=== PATIENT | female | born 1985 | race Caucasian/White ===

== ENCOUNTER → 2017-07-03 16:18 | Outpatient (CLI) | payer OTHER, SELFPAY ==
[2017-07-03 17:01] LABS: Hematocrit 36.2 % (37-47); Hemoglobin 11.9 g/dl (12.0-15.0); Mean Corp Hgb Conc 32.9 g/gl (32-36); Mean Corpuscular Hgb 30.1 pg (27.0-32.0); Mean Corpuscular Volume 91.4 fL (81-99); Mean Platelet Vol. 10.7 fl (6.2-12.0); Platelet Count 248 K/mm3 (150-450); RBC Distribution Width CV 13.8 % (11.6-14.6); RBC Distribution Width SD 45.6 fl (35.1-43.9); Red Blood Count 3.96 M/mm3 (4.2-5.4); White Blood Count 8.1 K/mm3 (4.4-11.0)
[2017-07-03 17:04] LABS: Glucose Challenge Gest 1H 50g 160 mg/dL (70-140)
[2017-07-03 17:40] LABS: Scan Indicated on CBC? Y/N NO
== END ==
PROVIDERS: Visit Provider Obstetrics & Gynecology
DX: Z34.83 Encounter for supervision of other normal pregnancy, third trimester (principal)
CPT/HCPCS: 36415; 82950; 85027

== ENCOUNTER → 2017-07-17 06:57 | Outpatient (CLI) | payer OTHER, SELFPAY ==
--- NOTE | 2017-07-17 06:57 | DT_ITS ---
This patient was seen during an EMR downtime July 15, 2017 - July 22, 2017. This patient may have a combination of paper and electronic documentation or all paper documentation. All documentation is viewable within the e-chart portion of [employer] for each patient visit.
[2017-07-21 10:44] LABS: Glucose GTT-Gestation. Fasting 63 mg/dL (<105)
[2017-07-21 10:45] LABS: Glucose GTT-Gestational 1 Hr 190 mg/dL (<190)
[2017-07-21 10:46] LABS: Glucose GTT-Gestational 2 Hr 162 mg/dL (<165)
[2017-07-21 10:47] LABS: Glucose GTT-Gestational 3 Hr 102 L (<145)
== END ==
PROVIDERS: Family Provider Family Medicine; PCP Family Medicine; Visit Provider Obstetrics & Gynecology
DX: O99.810 Abnormal glucose complicating pregnancy (principal); Z3A.00 Weeks of gestation of pregnancy not specified
CPT/HCPCS: 82951; 82952

== ENCOUNTER → 2017-08-29 11:00 | Outpatient (CLI) | payer OTHER, SELFPAY ==
[2017-08-29 13:29] LABS: Group B Strep DNA By PCR Negative (Negative); Internal Control PASS; Probe Check PASS; Specimen Processing Control PASS
== END ==
PROVIDERS: Visit Provider Obstetrics & Gynecology
DX: Z36.85 Encounter for antenatal screening for Streptococcus B (principal)
CPT/HCPCS: 87653

== ENCOUNTER 2017-09-17 09:50 | Inpatient (IN) | payer OTHER, SELFPAY ==
[2017-09-10 11:05] VITALS: BMI 42.5
[2017-09-17] VITALS (14 sets, daily range): BP systolic 129–162; BP diastolic 59–106; PULSE 71–96; RESP 12–18; TEMP 36.4–37.7; O2SAT 93–100; BMI 44.7
[2017-09-17] MEDS: Lactated Ringers 1,000 ML 999 ML IV (10:25)
[2017-09-17 10:45] LABS: Absolute Lymphocyte Count 1.52 X10^3/ul (0.83-4.51); Absolute Neutrophil Count 5.5 X10^3/uL (2.0-7.7); Basophil# 0.01 X10^3/uL; Basophil% 0.1 % (0-1); Eosinophil# 0.09 X10^3/uL; Eosinophils% 1.2 % (0-5); Hematocrit 40.7 % (37-47); Hemoglobin 13.5 g/dl (12.0-15.0); Lymphocyte # 1.52 X10^3/ul (4.0); Lymphocyte % 19.8 % (19-41); Mean Corp Hgb Conc 33.2 g/gl (32-36); Mean Corpuscular Hgb 30.5 pg (27.0-32.0); Mean Corpuscular Volume 92.1 fL (81-99); Mean Platelet Vol. 11.4 fl (6.2-12.0); Monocyte# 0.59 X10^3/uL; Monocyte% 7.7 % (0-10); Neutrophil # 5.45 X10^3/uL (2.7-7.7); Neutrophil % 70.9 % (47-70); Platelet Count 194 K/mm3 (150-450); RBC Distribution Width CV 13.8 % (11.6-14.6); RBC Distribution Width SD 46.2 fl (35.1-43.9); Red Blood Count 4.42 M/mm3 (4.2-5.4); White Blood Count 7.7 K/mm3 (4.4-11.0)
[2017-09-17 10:46] LABS: POSITIVE COUNT NO; POSITIVE DIFFERENTIAL NO; POSITIVE MORPHOLOGY NO
[2017-09-17 10:52] LABS: Partial Thromboplast Time 27.7 Seconds (24.1-36.2)
--- NOTE | 2017-09-17 10:55 | NURSING ---
1000-32 y/o admitted for repeat c/s.
[2017-09-17] MEDS: Lactated Ringers 1,000 ML 150 ML IV (11:20)
[2017-09-17] MEDS: Sodium Citrate/Citric Acid 30 ML UDC PO (11:46)
[2017-09-17] MEDS: Oxytocin 30 units/NS 500 ml 30 UNITS/500 ML IV.SOLN 167 UNITS IV (12:30)
--- NOTE | 2017-09-17 13:02 | OP.PCM_ITS ---
- Problem List (1) Previous section complicating Status: Chronic Delivery Classification: Scheduled Final RAMYA: 09/24/17 Final RAMYA Source: US <20 weeks Gestational age: 39 Weeks and 0 Days Indications for : Repeat Elective Description of Procedure: Delivery of live female weighing 8lb8oz, Apgars 9/9. Normal uterus, ovaries, and placenta. Minor adhesions of omentum to the anterior lower abdominal wall. Amniotic Membrane Rupture Type: Artificial Amniotic Fluid Description: Clear Placenta Disposition: [facility] Drain: Ulrich to straight drain Fluids Replaced: 1500cc Cord Entanglement: Around neck x 1, loose Nuchal Cord Compression: Without compression Cord Vessel Description: 3 Vessels Esitmated Blood Loss (ml): 600 Infant Gender: Female (1 minute): 9 (5 minute): 9 Pre-op Antibiotic Given: Ancef 2 grams IV x1 Pt instructed on risks of surgery: Bleeding, Infection, Need for Future C- Sections, Injury to surrounding structure(s) including bowel and bladder Complications: None - Admit VTE Documentation VTE Present on Admission: No VTE Mechan Device Prophylaxis: SCD's VTE Pharm Prophylaxis ordered?: No
--- NOTE | 2017-09-17 13:03 | PCM.OPRPT ---
Problem List (1) Previous section complicating Status: Chronic Report of Operation Date of Procedure: 09/17/17 Pre-Operative Diagnosis: Previous Section Post-Operative Diagnosis: Same Surgery/Procedure Performed:: Repeat Low Transverse Section Description of Surgical Findings:: Live female in vertex presentation. Active cry at delivery. Apgars 9/9. weight 8lb8oz. Some minor adhesions of omentum to the anterior abdominal wall. Normal appearing uterus, ovaries, and fallopian tubes. manager government: Kristy Knowles Type of Anesthesia:: Spinal Anesthesiologist: Candy Shen Special Medications: none Specimen's removed: same Drains: lauren Estimated Blood Loss (mL): 600 Fluids Replaced: 1500cc Description of Procedure: Moramia was taken to the OR with IV running. She was given two grams of Ancef intravenously for surgical prophylaxis. SCDs were in place and operational throughout the case. Spinal anesthesia was introduced without complication. She was then prepped and draped in the supine position with a leftward tilt. A lauren catheter was placed. Once anesthesia was deemed adequate a Pfannensteil skin incision was made through the previous scar. The underlying subcutaneous tissue was dissected down to the level of fascia using blunt and sharp dissection. The fascia was then dissected in the midline and this incision was extended bilaterally with the Michelle scissors. The rectus muscles were then dissected off the lower and upper portion of the fascial defect. The rectus muscles were in the midline, the peritoneum identified and entered sharply. The peritoneal defect was enlarged using sharp dissection and blunt retraction. The omental adhesions were removed from the anterior abdominal wall with Bovie cautery. A bladder blade was placed. The vesicouterine peritoneum was then incised and a bladder falp was created. The bladder blade was then replaced. The lower uterine incision was then incised with the scalpel. Once the cavity was entered it was enlarged using blunt lateral and superior traction. The amniotic fluid was noted to be clear. The baby's head was then delivered followed by the body. Delayed cord clamping was employed. The nose and mouth were suctioned with a bulb suction. The cord was then clamped and cut. The baby was handed off to the waiting nursery nurse for evaluation. The placenta was delivered manually. The uterus was exteriorized and the cavity cleared of all clots and membranes. The uterine incision was repaired in two layers with #1 vicryl. The posterior cul de sac was cleared of all clot and fluid. The uterus was returned to the abdomen. The gutters were cleared of all clot and fluid. The uterine incision was inspected and found to be hemostatic. The peritoneum was closed with a running stitch of 2-0 vicryl. The rectus muscles were reapproximated with interrupted sutures of 0-Vicryl. The fascia was closed with a running stitch of #1 Stratofix suture. The subcutaneous tissue was closed with a running stitch of 2-0 Vicryl. The skin was closed with a subcuticular stitch of 4-0 Monocryl. Sponge, lap, needle, and instrument counts were correct. She was taken to the recovery room in stable condition. Grafts/Implants Used: none - Complications none - Admit VTE Documentation VTE Present on Admission: No VTE Mechan Device Prophylaxis: SCD's VTE Pharm Prophylaxis ordered?: No
[2017-09-17] MEDS: Lactated Ringers 1,000 ML 100 ML IV ×2 (13:15→18:28)
[2017-09-17] MEDS: Nalbuphine 10 MG/ML Ampul 5 MG IV ×2 (14:57→18:35)
--- NOTE | 2017-09-17 15:00 | NURSING ---
Nubain 5 mg SIVP given for c/o itching.
[2017-09-17] MEDS: Ketorolac 30 MG/ML Syringe IV (18:30)
[2017-09-17] MEDS: 0.9% Saline Lock 10 ML Syringe IV ×2 (18:36)
[2017-09-17] MEDS: Ondansetron 4 MG/2 ML Vial IV (18:50)
[2017-09-17] MEDS: Cefazolin 1 GM/50 ML BAG IV (20:09)
[2017-09-18] VITALS (8 sets, daily range): BP systolic 127–148; BP diastolic 67–90; PULSE 68–88; RESP 16–20; TEMP 36.8–37.3; O2SAT 95–100
[2017-09-18] MEDS: Ketorolac 30 MG/ML Syringe IV ×4 (00:21→17:41)
[2017-09-18] MEDS: Lactated Ringers 1,000 ML 100 ML IV (00:22)
[2017-09-18] MEDS: Cefazolin 1 GM/50 ML BAG IV (04:13)
[2017-09-18 06:11] LABS: Hematocrit 34.8 % (37-47); Hemoglobin 11.2 g/dl (12.0-15.0); Mean Corp Hgb Conc 32.2 g/gl (32-36); Mean Corpuscular Hgb 30.2 pg (27.0-32.0); Mean Corpuscular Volume 93.8 fL (81-99); Mean Platelet Vol. 11.1 fl (6.2-12.0); Platelet Count 160 K/mm3 (150-450); RBC Distribution Width CV 14.1 % (11.6-14.6); RBC Distribution Width SD 48.1 fl (35.1-43.9); Red Blood Count 3.71 M/mm3 (4.2-5.4); White Blood Count 8.5 K/mm3 (4.4-11.0)
[2017-09-18 06:24] LABS: Scan Indicated on CBC? Y/N NO
--- NOTE | 2017-09-18 08:57 | PCM.PN.OB ---
Subjective: Appears comfortable. Bleeding light. Breast feeding. Objective: Afeb VSS Urine output adequate. Hgb appropriate for POD#1. - Physical Exam General: Alert, Oriented x3, Cooperative, No apparent distress Lungs: Clear to auscultation, Normal air movement Cardiovascular: Regular rate, Regular Rhythm Abdomen: Soft, Non Tender, Non-Distended, - - Fundus firm. Incision dressing dry Extremities: No edema Skin: No rashes Neurological: Neuro grossly intact Psych/Mental Status: Normal Affect Comment: Lochia light Vital Signs Temp Pulse Resp BP Pulse Ox 99.1 F 88 16 127/85 H 97 09/18/17 04:00 09/18/17 06:00 09/18/17 06:00 09/18/17 04:00 09/18/17 06:00 Oxygen Delivery Method Room Air Weight: 244 lb 7.882 oz Body Mass Index (BMI) 44.7 Intake and Output for Last 24 Hours 09/16/17 09/17/17 09/18/17 23:59 23:59 23:59 Intake Total 3500 / 3500 1850 / 1850 Output Total 550 / 550 1300 / 1300 Balance 2950 / 2950 550 / 550 Laboratory Tests Past 24 Hrs 09/17/17 09/17/17 09/17/17 10:20 10:20 10:20 WBC 7.7 RBC 4.42 Hgb 13.5 Hct 40.7 MCV 92.1 MCH 30.5 MCHC 33.2 RDW 13.8 RDW Differential 46.2 H Plt Count 194 MPV 11.4 Immature Gran % (Auto) 0.300 Neut % (Auto) 70.9 H Lymph % (Auto) 19.8 [place] % (Auto) 7.7 Eos % (Auto) 1.2 Baso % (Auto) 0.1 Absolute Neuts (auto) 5.5 Absolute Lymphs (auto) 1.52 Total Counted Not Reportable APTT 27.7 Blood Type B POSITIVE Antibody Screen NEGATIVE 09/18/17 05:50 WBC 8.5 RBC 3.71 L Hgb 11.2 L Hct 34.8 L MCV 93.8 MCH 30.2 MCHC 32.2 RDW 14.1 RDW Differential 48.1 H Plt Count 160 MPV 11.1 Immature Gran % (Auto) Neut % (Auto) Lymph % (Auto) [place] % (Auto) Eos % (Auto) Baso % (Auto) Absolute Neuts (auto) Absolute Lymphs (auto) Total Counted APTT Blood Type Antibody Screen Medical Necessity - Tobacco Use Smoking Status: Never smoker Assessment/Plan All Active Problems Arrest of dilation, delivered, current hospitalization (Acute) Doing well on POD#1. Continue routine PO care.
--- NOTE | 2017-09-18 09:05 | DCINST_ITS ---
Discharge Diet: No Restrictions Discharge Activity: Return to Normal Activity, May Not Drive, May not drive while taking narcotic pain medications., May Shower Return to work on:: 11/18/17 May shower in (days): 0 May resume sexual activity in: 4-6 weeks Call your doctor if your incision/area has: Sudden Increased Bleeding, Increased Pain/ Swelling, Increased Redness, Foul Smelling Discharge, Swelling at the incision site Call your doctor if you observe: Fever of 101 or Higher, Inability to urinate, Inability to have a bowel movement, Using more than one pad per hour, Shortness of breath, Chest pain, Calf discomfort, Uncontrolled pain Remove Dressing in (days):: 3 Additional Instructions: If you experience any of the following, contact your healthcare provider. * Bleeding that soaks a pad every hour for 2 hours * Fever 100.4 or higher * Unrelieved incision or abdominal pain * Swelling, redness, discharge or bleeding from your incision or episiotomy site * Your incision begins to separate * Problems urinating (including inability to urinate or burning while urinating) . * Visual changes * Severe headache * Flu-like symptoms * Pain or redness in one of both of your breasts * Pain, warmth, tenderness or swelling in your legs, especially the calf area * Frequent nausea and vomiting * Symptoms of depression or anxiety If you experience any of the following, call 911 or go to the nearest Emergency Room. * Chest pain * Problems breathing * Seizure activity * Partial or complete paralysis of a body part, slurred speech, weakness or drooping of the face, or a sudden inability to walk or hold your balance Allergies/Adverse Reactions: Allergies No Known Allergies Allergy (Verified 09/10/17 11:06) Medications to take at Discharge Pantoprazole Sodium [Protonix] 40 mg PO DAILY 10/18/15 Vits [Prenatabs FA ] 1 tablet PO DAILY 10/18/15 L.acidoph,Paracasei, B.lactis [Probiotic] 1 each PO 09/10/17 Ibuprofen 600 mg PO Q6H PRN PRN #30 tab 09/18/17 Oxycodone [Oxyir] 5 - 10 mg PO Q4H PRN PRN 7 Days #28 tab 09/18/17 The following prescriptions were given: Oxycodone [Oxyir] 5 - 10 mg PO Q4H PRN PRN 7 Days #28 tab PRN Reason: Mod-Severe Pain (4-11/20) Ibuprofen 600 mg PO Q6H PRN PRN #30 tab PRN Reason: pain or cramping Follow-Up: Call to make an appointment with your doctor for an incision check in 1-2 weeks. You will also need a 6 week post- follow up appointment. Test results from this visit will be discussed in further detail at your follow- up appointment, if applicable. Please Follow Up With: Miguel Chavarria MD When: one week Primary Care Physician: Christophe Dozier MD [Primary Care Provider] - Proposed Discharge Date: 09/19/17
[2017-09-18] MEDS: Prenatal Vits Tablet 1 TABLET PO (09:59)
--- NOTE | 2017-09-18 12:25 | NURSING ---
1100 Mom doing well with feedings and encouraged to call if she would like to have any assistance with feedings. Larissa WAYNE
[2017-09-18] MEDS: oxyCODONE 5 MG Tablet PO ×2 (13:51→17:49)
[2017-09-18] MEDS: 0.9% Saline Lock 10 ML Syringe IV (17:41)
[2017-09-19] MEDS: Ketorolac 30 MG/ML Syringe IV ×3 (00:53→11:43)
[2017-09-19] MEDS: Senna/Docusate Sodium 1 Tablet PO (00:53)
[2017-09-19] MEDS: 0.9% Saline Lock 10 ML Syringe IV ×2 (00:54→11:44)
[2017-09-19 01:54] VITALS: BP 151/83; PULSE 69; RESP 18; TEMP 36.8; O2SAT 96
[2017-09-19] MEDS: oxyCODONE 5 MG Tablet PO ×2 (01:55→07:45)
--- NOTE | 2017-09-19 07:40 | PCM.PN.OB ---
Subjective: No specific complaints. Bleeding light. Breast feeding. Pain well controlled. Objective: Afeb VSS - Physical Exam General: Alert, Oriented x3, Cooperative, No apparent distress Lungs: Clear to auscultation, Normal air movement Cardiovascular: Regular rate, Regular Rhythm Abdomen: Soft, Non Tender, Non-Distended, - - Incision dressing dry Extremities: No edema, No Calf Tenderness Skin: No rashes Neurological: Neuro grossly intact Psych/Mental Status: Normal Affect Comment: Lochia light Vital Signs Temp Pulse Resp BP Pulse Ox 98.3 F 69 18 151/83 H 96 09/19/17 01:54 09/19/17 01:54 09/19/17 01:54 09/19/17 01:54 09/19/17 01:54 Oxygen Delivery Method Room Air Weight: 244 lb 7.882 oz Body Mass Index (BMI) 44.7 Intake and Output for Last 24 Hours 09/17/17 09/18/17 09/19/17 23:59 23:59 23:59 Intake Total 3500 / 3500 2632 / 2632 Output Total 550 / 550 3600 / 3600 Balance 2950 / 2950 -968 / -968 Medical Necessity - Tobacco Use Smoking Status: Never smoker Assessment/Plan All Active Problems Arrest of dilation, delivered, current hospitalization (Acute) Doing well on POday#2. Cleared for discharge home today. Home going instructions and warnings given.
--- NOTE | 2017-09-19 07:44 | DS.PCM_ITS ---
Discharge Date and Diagnosis Date of Admission: 09/17/17 Date of Discharge: 09/19/17 - Primary Discharge Diagnosis S/P repeat C/S - Secondary Discharge Diagnosis Chronic Problems Previous section complicating (Chronic) Gestational hypertension w/o significant proteinuria in 3rd trimester (Chronic) Hospital Course and Treatment Operations: - - Repeat LTCS Summary of Care Provided: The patient is a 32 year old F [admitted for scheduled repeat LTCS. This was performed without complication with delivery of a live without complication. Post operative course unremarkable. Discharged home on PO day#2. ] Discharge Diet: No Restrictions Discharge Activity: Return to Normal Activity, May Not Drive, May not drive while taking narcotic pain medications., May Shower Return to work on:: 11/18/17 May shower in (days): 0 May resume sexual activity in: 4-6 weeks Call your doctor if your incision/area has: Sudden Increased Bleeding, Increased Pain/ Swelling, Increased Redness, Foul Smelling Discharge, Swelling at the incision site Call your doctor if you observe: Fever of 101 or Higher, Inability to urinate, Inability to have a bowel movement, Using more than one pad per hour, Shortness of breath, Chest pain, Calf discomfort, Uncontrolled pain Remove Dressing in (days):: 3 Home Medications: Medications to take at Discharge Pantoprazole Sodium [Protonix] 40 mg PO DAILY 10/18/15 Vits [Prenatabs FA ] 1 tablet PO DAILY 10/18/15 L.acidoph,Paracasei, B.lactis [Probiotic] 1 each PO 09/10/17 Ibuprofen 600 mg PO Q6H PRN PRN #30 tab 09/18/17 Oxycodone [Oxyir] 5 - 10 mg PO Q4H PRN PRN 7 Days #28 tab 09/18/17 Following Prescrptions Were Given to Patient: Oxycodone [Oxyir] 5 - 10 mg PO Q4H PRN PRN 7 Days #28 tab PRN Reason: Mod-Severe Pain (4-10/10) Ibuprofen 600 mg PO Q6H PRN PRN #30 tab PRN Reason: pain or cramping Primary Care Physician: Christophe Dozier MD [Primary Care Provider] - Please Follow Up With: Miguel Chavarria MD When: one week Disposition: Home Minutes spent on discharge:: 15 Patient Condition:: Good Medical Necessity - Tobacco Use Smoking Status: Never smoker Meaningful Use Info Meaningful Use Diagnoses (Choose all that apply): None applicable
[2017-09-19 09:00] VITALS: BP 143/78; PULSE 76; RESP 16; TEMP 36.9; O2SAT 96
[2017-09-19] MEDS: Prenatal Vits Tablet 1 TABLET PO (11:44)
== END 2017-09-19 12:30 | disposition home or self-care (01) | DRG 765 ==
PROVIDERS: Admitting Provider Obstetrics & Gynecology; Family Provider Family Medicine; PCP Family Medicine; Visit Provider Obstetrics & Gynecology
PROC: 10D00Z1 Extraction of Products of Conception, Low, Open Approach (ICD-10-PCS; CPT 59514; principal; 2017-09-17 11:45)
DX: O34.211 Maternal care for low transverse scar from previous cesarean delivery (principal); O13.4 Gestational [pregnancy-induced] hypertension without significant proteinuria, complicating childbirth; O62.0 Primary inadequate contractions; O69.81X0 Labor and delivery complicated by cord around neck, without compression, not applicable or unspecified; O99.214 Obesity complicating childbirth; E66.01 Morbid (severe) obesity due to excess calories; Z68.41 Body mass index [BMI] 40.0-44.9, adult; Z3A.39 39 weeks gestation of pregnancy; Z37.0 Single live birth
CPT/HCPCS: 85025; 85027; 85730; 86850; 86900; 99218; J7120; A4216; G0378; J2405

== ENCOUNTER → 2017-10-23 16:53 | Outpatient (CLI) | payer OTHER, SELFPAY ==
--- NOTE | 2017-10-23 16:55 | RAD_ITS ---
STUDY: X-RAY - THORACIC SPINE REASON FOR EXAM: Female, 32 years old. Mid upper back pain radiating to the chest and abdomen since 6 weeks ago. TECHNIQUE: 3 view(s) of the thoracic spine were obtained. COMPARISON: None. FINDINGS: Normal kyphosis of the thoracic spine. There is no substantial scoliosis. Normal thoracic vertebrae and endplates. Normal disc space heights. The soft tissue structures are unremarkable. RAD/Thoracic Spine 3 Views IMPRESSION: Normal x-ray examination of the thoracic spine. Electronically Signed: Jaxson Ewing, at 18:04 EDT Tel , Service support ,
== END ==
PROVIDERS: Family Provider Family Medicine; PCP Family Medicine; Visit Provider Obstetrics & Gynecology
DX: M54.6 Pain in thoracic spine (principal)
CPT/HCPCS: 72072

== ENCOUNTER 2017-11-26 11:00 | Outpatient (RCR) | payer OTHER, SELFPAY ==
--- NOTE | 2017-10-31 17:03 | HP.PTEVAL_ITS ---
Patient's Visit Information RICHI AMADOR is a 32 year old F referred to Physical Therapy by Miguel Chavarria with a diagnosis of Back pain. Date of Evaluation: 10/31/17 Physical Therapist: David Rayo, PT, - Visit Plan Frequency: 2x /Week Duration: 4-6 Weeks Plan: T/S stab ex's , postural edu, scap stab ex's, UBE, and HEP. Will seek second opinion from Anaya Diamond PT, MDT next session. - Subjective Subjective: Pt reports she has had mid- upper back pain for the past 6 weeks. Pt notes she had a c section at that time, and notes that while she has been healing from this event, her back has begun to hurt. Pt has had pain like this before when she had a prior c section, but the pain was not this bad. Pt notes the pain usually hits worst in the middle of the night. Pt reports she is not sure what is causing her pain. Pt reports her pain will wrap around the front of her chest and ribcage when its at its worst. Sleep diff secondary to pain. Pt notes she had xrays, no abnormality. 3/10 pain at rest, 10/10 at worst ( while sleeping) - Pain Thoracic spine Pain Intensity (Out of 10): 3 Pain Intensity Range: 10 - Objective Neuro: B LE and UE sensation is WNL to light touch. B bicepital and patellar tendon reflex= 2/3 bilaterally. Palpation: Pt reports pain from the T2 region to the T8 region. No obvious deformity. UE MMT: B UE 5/5 throughout. Posture: Pt sits with decreased L/S lordosis, increased T/S kyphosis, and fwd head posture. T/S ROM: All motions are WNL. L SB increases pt's pain. Fwd bending and ext both have no effect. Repeated movements in sitting: flex 10x3 NE, ext in standing against h/l table increased pain - Goals Goal 1:: Decrease T/S pain x 50% to aid with sleep Goal Time Frame: 4-6 Weeks Goal 2:: Increase T/S mobility to WNL to aid with ADL's Goal Time Frame: 4-6 Weeks Goal 3:: I with HEP Goal Time Frame: 4-6 Weeks - Rehabilitation Potential Physical Therapy Diagnosis: Pt has back pain, limited T/S mobility, and diff with sleep secondary to T/S instability Rehabilitation Potential: Good - Anticipated Interventions Patient/Client Instruction: Educate patient on: Condition, Plan of Care For the Purpose of:: To improve self management Therapeutic Exercise to Include: Strength training, Endurance training, Body mechanics, Postural training, Scapular Strength/Stabilization For the Purpose of:: To decrease pain, To increase ROM, To improve muscle performance and motor function Thank you for the opportunity to evaluate your patient. For Medicare and Medicare HMO plans, please review the plan of care and approve it. It will need to be FAXED BACK to us at [phone] for Medicare purposes. Please let me know if there are questions or concerns regarding this plan of care. Physician Signature: Date:
--- NOTE | 2018-04-10 16:50 | HP.PT.NRP ---
HP - Discharge Summary (1) - Patient Information RICHI AMADOR was seen in my office for initial evaluation on 10/31/17. The following Plan of Care was established for this patient: Initial Frequency: 2x /Week Initial Duration: 4-6 Weeks - Anticipated Interventions Patient/Client Instruction: Educate patient on: Condition, Plan of Care For the Purpose of:: To improve self management Therapeutic Exercise to Include: Strength training, Endurance training, Body mechanics, Postural training, Scapular Strength/Stabilization For the Purpose of:: To decrease pain, To increase ROM, To improve muscle performance and motor function This patient was last seen in our office 11/26/17. Pertinent comments regarding their Physical therapy will appear below: This patient has not returned to Physical Therapy and is appropriate to return to MD for further follow-up as needed. At this point I will be discontinuing this patient from physical therapy. I would be happy to see this patient again in the future if found appropriate by the physician. Thank you! Anaya Diamond, PT, Cert MDT
== END 2017-11-26 19:00 | disposition home or self-care (01) ==
LOC: PT 11:00
PROVIDERS: Family Provider Family Medicine; PCP Family Medicine; Visit Provider Obstetrics & Gynecology
DX: M54.40 Lumbago with sciatica, unspecified side (principal)
CPT/HCPCS: 97014; 97035; 97110; 97161; 97164; 97530; G0283

== ENCOUNTER → 2018-02-07 15:09 | Outpatient (CLI) | payer OTHER, SELFPAY ==
[2018-02-14 16:28] LABS: HPV HC, High Risk Negative (Negative)
== END ==
PROVIDERS: Visit Provider Obstetrics & Gynecology
DX: Z12.4 Encounter for screening for malignant neoplasm of cervix (principal)
CPT/HCPCS: 87624; 88175; G0145

== ENCOUNTER → 2018-06-01 14:49 | Outpatient (CLI) | payer OTHER, SELFPAY ==
[2018-06-01 12:50] VITALS: BMI 37.8
== END ==
PROVIDERS: Family Provider Family Medicine; PCP Family Medicine; Referring Provider Physician Assistant Medical; Visit Provider Physician Assistant Medical
DX: J02.9 Acute pharyngitis, unspecified (principal)
CPT/HCPCS: 87081

== ENCOUNTER → 2018-07-24 09:43 | Outpatient (CLI) | payer OTHER, SELFPAY ==
[2018-07-07 13:03] VITALS: BMI 37.8
[2018-07-30 03:06] LABS: Alternaria tenuis <0.10 kU/L (Class 0); Ash, White <0.10 kU/L (Class 0); Aspergillus fumigatus <0.10 kU/L (Class 0); Bermuda Grass <0.10 kU/L (Class 0); Birch <0.10 kU/L (Class 0); Black Walnut 0.11 kU/L (Class 0/I); Cat Hair / Dander,Stand <0.10 kU/L (Class 0); Cedar, Mountain <0.10 kU/L (Class 0); Cladosporium herbarum <0.10 kU/L (Class 0); Cockroach, American <0.10 kU/L (Class 0); Cottonwood <0.10 kU/L (Class 0); D farinae Mite 6.22 kU/L (Class IV); D pteronyssinus 7.54 kU/L (Class IV); Dog Epithelia <0.10 kU/L (Class 0); Elm, American White <0.10 kU/L (Class 0); Immunoglobulin E 44 IU/mL (6-495); Maple/Box Elder <0.10 kU/L (Class 0); Mulberry, White <0.10 kU/L (Class 0); Oak, White <0.10 kU/L (Class 0); Pecan <0.10 kU/L (Class 0); Penicillium Notatum <0.10 kU/L (Class 0); Pigweed, Rough <0.10 kU/L (Class 0); Ragweed, Short/Common <0.10 kU/L (Class 0); Russian Thistle <0.10 kU/L (Class 0); Sheep Sorrel <0.10 kU/L (Class 0); Sycamore, American <0.10 kU/L (Class 0); Timothy Grass <0.10 kU/L (Class 0)
[2018-07-30 11:26] LABS: Mouse Urine <0.10 kU/L (Class 0)
[2018-07-30 16:07] LABS: Banana <0.10 kU/L (Class 0); Beef <0.10 kU/L (Class 0); Chicken <0.10 kU/L (Class 0); Garlic <0.10 kU/L (Class 0); Gluten <0.10 kU/L (Class 0); Rice <0.10 kU/L (Class 0); SESAME SEED <0.10 kU/L (Class 0); Strawberry <0.10 kU/L (Class 0); Wheat <0.10 kU/L (Class 0)
[2018-07-31 08:55] LABS: Milk (Cow) <0.10 kU/L (Class 0); Turkey <0.10 kU/L (Class 0)
== END ==
PROVIDERS: Family Provider Family Medicine; PCP Family Medicine; Referring Provider Otolaryngology; Visit Provider Otolaryngology
DX: T78.40XA Allergy, unspecified, initial encounter (principal)
CPT/HCPCS: 36415; 82785; 86003

== ENCOUNTER → 2019-07-31 | Outpatient (CLI) | payer OTHER, SELFPAY ==
[2018-09-12 17:05] VITALS: BMI 37.8
--- NOTE | 2019-07-31 12:45 | EMB_PTH ---
PATIENT: RICHI AMADOR LOC: [facility] U#:[id number] AGE/SX: 34/F ROOM: RE07/31/[address]: Dr. Gautam Hills MD : 1985 BED: DIS: 07/31/2019 SPEC #: [id number] RECD: 07/31/19 15:00 STATUS: SATYA ANNEMARIE #: [id number] REMI: 07/31/19 12:[address]: Gautam Hills DEPT: SURGICAL PATHOLOGY RECD BY: Matilde Guillen ENTERED: 08/03/19 09:12 SP TYPE: ENDOM BX/C DIMPLE DR: Dr. Christophe Dozier MD Tissues: Endometrium, NOS Procedures: Surgery Specimen Level IV HEADER OPERATION: Endometrial biopsy PRE-OP DIAGNOSIS: N92.0 TISSUE SUBMITTED: Endometrial biopsy MICROSCOPIC DIAGNOSIS Endometrial biopsy: Proliferative endometrium. SJ:daina 08/04/19 MICROSCOPIC DESCRIPTION Slides are reviewed. GROSS DESCRIPTION Received is one container labeled with the patient's name and not further designated. The specimen consists of multiple fragments of pink hemorrhagic soft tissue that in aggregate measure 3 x 2 x 0.2 cm. The specimen is totally submitted in one cassette. / SJ:daina 08/03/19 TC:4 CPT: 82195
== END | disposition home or self-care (01) ==
LOC: LABSPEC 15:53
PROVIDERS: PCP Family Medicine; Referring Provider Obstetrics & Gynecology; Visit Provider Obstetrics & Gynecology
DX: N92.0 Excessive and frequent menstruation with regular cycle (principal)
CPT/HCPCS: 88305

== ENCOUNTER 2019-08-28 05:57 | Day surgery (SDC) | payer OTHER, SELFPAY ==
[2018-09-12 17:05] VITALS: BMI 37.8
[2019-08-21 15:04] LABS: Hemoglobin 13.4 g/dL (12.0-15.0); Mean Corp Hgb Conc 32.7 g/dL (32-36); Mean Corpuscular Hgb 29.8 pg (27.0-32.0); Mean Corpuscular Volume 91.3 fL (81-99); Mean Platelet Vol. 10.6 fl (6.2-12.0); Platelet Count 261 K/mm3 (150-450); RBC Distribution Width CV 12.8 % (11.6-14.6); RBC Distribution Width SD 41.9 fl (35.1-43.9); Red Blood Count 4.49 M/mm3 (4.2-5.4); White Blood Count 7.5 K/mm3 (4.4-11.0)
[2019-08-21 15:16] LABS: International Normalized Ratio 0.9; Prothrombin Time (Protime)PT. 12.1 SECONDS (11.7-14.9)
[2019-08-21 15:55] LABS: Thyroid Stim Hormone (TSH) 2.81 uIU/mL (0.358-3.74)
[2019-08-21 15:59] LABS: Internal QC Validated? YES +Cl - CLEAR BKGD; Pregnancy, Serum, hCG Quali. NEGATIVE Negative
--- NOTE | 2019-08-27 13:24 | PCM.HP.BLA ---
History and Physical Date of Admission: 08/28/19 Surgical History and Physical Moraima Greenfield, a 34 year old female 2 0 0 0 2, presents for HTA, Hysteroscopy and D and C on August 28, 2019 at 7:30. -- Menorrhagia -- Heavy menses which began months ago. Moraima claims it started gradually It occurs with menses. It is located in the vagina. Moraima characterizes the quality heavy. Severity is severe and worsening; Associated signs and symptoms are had vasectomy. Additional comments are: TSH normal 2 years ago; u/s without polyps or fibroids. EMBx ok. MEDICATIONS HISTORY: ALLERGIES: NKDA Infections - Bronchitis, Chicken pox, mono and yeast inf Illnesses - anxiety, depression and migraines Accidents - no injuries of consequence Hospitalizations - Childbirth and see surgery Review of Systems: GENERAL - Denies fever, or chills SKIN - Denies skin changes EYES - wears eye glasses EARS - Denies difficulty hearing NOSE - Denies nasal congestion or bleeding MOUTH - Denies sore throat or difficulty swallowing NECK - Denies pain or swelling RESPIRATORY - Denies shortness of breath or wheezing CARDIOVASCULAR - Denies palpitations or chest pain GASTROINTESTINAL - Denies nausea, vomiting, diarrhea, constipation GENITOURINARY - Denies dysuria, frequency of urination, incontinence of urine MUSCULOSKELETAL - Denies joint or muscle pain NEUROLOGICAL - Denies localized numbness or weakness PSYCHIATRIC - Denies depression or anxiety ENDOCRINE - Denies heat or cold intolerance, weight loss or gain HEMATO-IMMUNOLOGIC - Denies excesive bleeding with cuts SOCIAL HISTORY: Alcohol Use - drinks occasionally Smoking - Never Diet - moderate, balanced diet and caffeine < 2 drinks per day Lifestyle - moderate stress lifestyle Exercise - active work Seat Belt Use - always Employer - [employer] 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 , 5th, 6th Illicit Drug Use - denies use of street drugs Sexual Activity - Residence - lives w/ Hours Worked - 50 hours per week Spouse-Sig Other Name - Meng Greenfield Spouse-Sig Other Occupation - Teacher [employer] / [employer] @ [employer] Spouse-Sig Other Phone No - [phone] Children Name(s) - Kar (10/27) julio, Lauri (09/17/17) julio Control - Vasectomy FAMILY HISTORY: Paternal Grandfather: DM II and Hypertension. MENSTRUAL HISTORY: LMP Known?- DefiniteAmount/Duration - 7 days, Regularity - Regular, Frequency - monthly days, LMP - 08/16/19, Age Onset Menarche - 13 PAST PREGNANCIES: Total Pregnancies - 2; Full Term Pregnancies - 2; Premature - 0; Abortions, Induced - 0; Abortions, Spontaneous - 0; Ectopics - 0; Multiple Births - 0; Living Children - 2 SURGICAL HISTORY: 1. 09/17/2017 ; Dr Miguel Chavarria - 2. 10/19/2015 ; Dr Miguel Chavarria - PHYSICAL EXAM BP- 124/88 Sitting, Right arm, large cuff Temp- 98.3 Taken Orally Weight- 240.72903 lbs Height- 63.25 inch BMI:42.27 CONSTITUTIONAL - NAD, well nourished, and well developed SKIN - No rash, lesions, or ulcers HEENT - Normocephalic, PERRLA, EOMI NECK - No nodes, no nuchal rigidity and thyroid normal size and texture LYMPH NODES - Palpation of lymph nodes in neck and groins within normal limits LUNGS - CTA x2 without wheezes, crackles or rales CARDIAC - Regular rate and rhythm without rubs, murmurs, or gallops BREAST - No dominant masses, no tenderness, no axillary adenopathy, no nipple discharge, no skin changes ABDOMEN - Without hepatosplenomegaly, distention, masses, rebound, or guarding; normal bowel sounds; no hernias EXTREMITIES - No edema or calf tenderness NEUROLOGICAL - Cranial nerves II-XII grossly intact PSYCHIATRIC - A and O to time, place, person, mood and affect External Genitial Vagina - non-tender without lesions Urethra/Urethral Meatus - non-tender Bladder - non-tender Vagina - vaginal justice are pink and moist without loss of rugae and no evidence of atropy Cervix - without cervical motion tenderness and has normal size and features without evident lesions Uterus - 5-6 cm in size, mobile and nontender Adnexa - clear without massess or tenderness ASSESSMENT/PLAN: 1. Premenopausal Menorrhagia Discussed optons at length and pt desires proceeding with HTA, D and C and H/S. Discussed RBAs and all questons answered.
[2019-08-28] VITALS (7 sets, daily range): BP systolic 126–166; BP diastolic 72–122; PULSE 54–81; RESP 16–18; TEMP 36.3–36.8; O2SAT 94–100; BMI 41.0
[2019-08-28 06:27] LABS: Internal QC Validated? YES +Cl - CLEAR BKGD; Pregnancy, Urine Negative Negative
[2019-08-28] MEDS: Lactated Ringers 1,000 ML 100 ML IV (06:44)
--- NOTE | 2019-08-28 07:30 | EMB_PTH ---
PATIENT: RICHI AMADOR [place] [facility] [place][id number] AGE/SX: 34/F ROOM: RE08/28/[address]: Dr. Gautam Hilsl MD : [id number] BED: DIS: 08/28/2019 SPEC #: [id number] RECD: 08/28/19 09:52 STATUS: SATYA ANNEMARIE #: [id number] REMI: 08/28/19 07:[address]: Gautam Hills DEPT: SURGICAL PATHOLOGY RECD BY: Jose G Harp ENTERED: 08/28/19 10:32 SP TYPE: ENDOM BX/C OTHR DR: Dr. Christophe Dozier MD Tissues: Endometrium, NOS Procedures: Surgery Specimen Level IV HEADER OPERATION: Hysteroscopy, D & C hydroablation PRE-OP DIAGNOSIS: Premenopausal menorrhagia TISSUE SUBMITTED: Endometrial curettings MICROSCOPIC DIAGNOSIS Endometrium, curettings: Proliferative endometrium. AM:daina 08/31/19 MICROSCOPIC DESCRIPTION Slides are reviewed. GROSS DESCRIPTION Received in fixative is one container labeled with the patient's name and designated endometria curettings. The specimen consists of multiple fragments of hemorrhagic soft tissue that in aggregate measure 5 x 3 x 0.3 cm. The entire specimen is submitted in two cassettes. / SJ:daina 08/28/19 TC:5 CPT: 92102
--- NOTE | 2019-08-28 07:32 | PCM.OPRPT ---
Report of Operation Date of Procedure: 08/28/19 Pre-Operative Diagnosis: Menorrhagia Post-Operative Diagnosis: Menorrhagia Surgery/Procedure Performed:: Diagnostic Hysteroscopy, Dilation and Curettage, Hydrothermal Ablation Description of Surgical Findings:: 10 cm endometrial cavity without polyps or fibroids. Cervix which protruded to within 1 to 2 cm of introitus with tenaculum pulled down which would make laparoscopic-assisted vaginal hysterectomy possible if hysterectomy were necessary. Type of Anesthesia:: General - LMA Anesthesiologist: Pablo Vigil Specimen's removed: Endometrial curettings Estimated Blood Loss (mL): Minimal Fluids Replaced: Crystalloid Description of Procedure: Surgeon: Gautam Hills MD, FACOG Indication: This is a 34 year old patient who has been having problems with extremely heavy menses. Conservative measures have not been helpful. Endometrial sampling was benign and pelvic ultrasound showed that ablation may be helpful. Pt has been counseled regarding the risks, benefits and alternatives of this procedure and all questions answered. She understands that only about half of patients will have amenorrhea after this procedure. Procedure: Patient taken to the operating room where after induction of general anesthesia the patient was prepped and draped in the usual sterile fashion. Bladder was drained of urine with a catheter. Anterior cervix grasped and cervix was dilated to about 17 English size. Hysteroscopic hydrothermal ablation (HTA) unit was place in the cervix and the above findings were noted. HTA unit was removed and the uterus was gently curretted removing all contents. An HTA ablation cycle was then carried out at about 90 degrees Centigrade for 10 minutes with virtually no fluid loss during the procedure. After an appropriate cool down the HTA unit was removed with minimal bleeding noted. The patient tolerated the procedure well and was taken to the recovery room in satisfactory condition. Sponge, instruments and needle counts were all correct. There were no apparent complications of the surgery. Cefotetan 2 gms IV was given prior to the procedure. Estimated Blood Loss: Minimal Specimen to Pathology: Endometrial Curettings Grafts/Implants Used: None - Complications None - Admit VTE Documentation VTE Present on Admission: Yes VTE Mechan Device Prophylaxis: SCD's
--- NOTE | 2019-08-28 07:34 | DCINST_ITS ---
Discharge Diet: No Restrictions Discharge Activity: Return to Normal Activity, May Shower, May Take a Tub Bath May resume sexual activity in: 3 weeks Call your doctor if you observe: Fever of 101 or Higher, Inability to urinate, Inability to have a bowel movement, Using more than one pad per hour Allergies/Adverse Reactions: Allergies No Known Allergies Allergy (Verified 08/28/19 06:26) Medications to take at Discharge fluticasone propionate 50 mcg/actuation nasal spray,suspension 1 spray INTRANASAL DAILY 06/01/18 Cetirizine HCl [Zyrtec] 10 mg PO DAILY 08/19/19 Oxycodone [Oxyir] 5 mg PO Q6H PRN PRN 7 Days #5 tablet 08/28/19 The following prescriptions were given: Oxycodone [Oxyir] 5 mg PO Q6H PRN PRN 7 Days #5 tablet PRN Reason: Pain Score 6-10/10 Transmission Status: Sent to [facility] Primary Care Physician: Christophe Dozier MD [Primary Care Provider] - Test Results: Test results from this visit will be discussed in further detail at your follow- up appointment, if applicable. Please Follow Up With: Gautam Hills MD When: 3 to 4 weeks
== END 2019-08-28 09:51 | disposition home or self-care (01) ==
LOC: SDC 06:00 → AC 06:01
PROVIDERS: Anesthesiology; PCP Family Medicine; Referring Provider Obstetrics & Gynecology; Visit Provider Obstetrics & Gynecology
PROC: 0U5B8ZZ Destruction of Endometrium, Via Natural or Artificial Opening Endoscopic (ICD-10-PCS; CPT 58563; principal; 2019-08-28 07:15)
DX: N92.4 Excessive bleeding in the premenopausal period (principal); Z79.899 Other long term (current) drug therapy
CPT/HCPCS: 00952; 58563; 36415; 81025; 84443; 84703; 85027; 85610; 85730; 86850; 86900; 86901; 87635; 88305; G2023; J7120; J2405; U0003

== ENCOUNTER → 2019-12-17 08:34 | Outpatient (CLI) | payer OTHER, SELFPAY ==
[2019-08-28 06:28] VITALS: BMI 41.0
--- NOTE | 2019-12-17 08:35 | VDLE_ITS ---
Reason For Study: Vasricose veins Procedure LEFT This is a venous duplex using B-mode, color CFV is compressible, spontaneous, phasic, flow and spectral Doppler. competent, and demonstrates normal Exam performed in department. augmentation. A preliminary report was called and/or faxed FV is compressible, spontaneous, phasic, to Felipa. competent and demonstrates normal augmentation. POP V is compressible, spontaneous, phasic, competent and demonstrates normal augmentation. T/P Trunk is compressible. PTV is compressible. LT PerV is compressible. SFJ is INCOMPETENT and measures 0.91 x 0.79 cm. GSV proximal thigh measures 0.39 x 0.39 cm. GSV at knee measures 0.32 x 0.32 cm. GSV INCOMPETENT throughout for greater than 0.5 seconds. ASV at knee is INCOMPETENT for greater than 0.5 seconds and measures 0.30 x 0.30 cm. ASV proximal calf is INCOMPETENT for greater than 0.5 seconds and measures 0.25 x 0.27 cm. SSV proximal calf is competent and measures 0.31 x 0.30 cm. Interpretation Summary Left leg no DVT ior SVT. Left GSV reflux 9, 4, and 3.2mm with reflux throughout. Ordering Physician: Ector Leo Referring Physician: Christophe Dozier Performed By: Moraima Shin RVT
== END ==
PROVIDERS: PCP Family Medicine; Referring Provider Surgery Vascular Surgery; Visit Provider Surgery Vascular Surgery
DX: I83.892 Varicose veins of left lower extremity with other complications (principal)
CPT/HCPCS: 93971

== ENCOUNTER 2020-01-24 04:05 | Emergency (ER) | payer OTHER, SELFPAY ==
[2019-08-28 06:28] VITALS: BMI 41.0
[2020-01-24 04:07] VITALS: BP 167/102; PULSE 75; RESP 16; TEMP 36.7; O2SAT 99; BMI 40.9
--- NOTE | 2020-01-24 04:25 | ED.VISSUMM ---
- ER Visit Summary Date of Service: 01/24/20 Chief Complaint: Left upper quadrant abdominal and flank pain History of Present Illness: The patient is a 34 F no significant past medical history. She has had a prior x2 and D&C. Patient states that on Saturday morning she started having intermittent left upper quadrant abdominal pain that at times radiated to her left flank. She had associated nausea but no vomiting. Denies any diarrhea. Denies any dysuria or hematuria. Denies any fever or chills. She has had no prior history of kidney stones. No recent history of any type of abdominal trauma. She has had similar pain in the past but is never had it evaluated. She is never had pancreatitis. Physical Examination: Patient no acute distress. Vital signs stable afebrile. H EENT exam unremarkable. Neck nontender no lymphadenopathy. Lungs clear to auscultation bilaterally. Heart regular rhythm no murmur. Chest wall nontender. No rib cage tenderness or signs of trauma. No subcu air crepitance. Abdomen soft. She complains of pain to left upper quadrant is not really reproducible. Right upper and right lower quadrants are unremarkable. There is no hernia or masses. No signs of obstruction. No peritoneal signs. Abdomen soft. She is moving all 4 extremities. No edema. Back nontender. No CVA tenderness. Neurologically she is awake and alert with no focal motor deficits. Test Results: CBC normal white count 8. Hemoglobin 14. Chemistries normal normal creatinine and gap. Liver enzymes normal. Lipase normal at 233. Serum test negative. CAT scan of the abdomen pelvis without contrast read as normal by the radiologist and reviewed by me. Urinalysis showed no signs of infection. Negative nitrates. Negative white cells. Emergency Department Course and Treatment: Younger female left upper quadrant left flank pain. Exam is benign. There is no really reproducible pain. She will undergo a CAT scan for possible kidney stone versus other etiologies. Screening labs and urinalysis. She be treated with IV Toradol for pain and Zofran for nausea. Repeat exam the patient is doing well at 5:27 AM. She is improved after the IV Toradol and IV Zofran. She and I went over all of her test results. Were awaiting her urine sample and urine analysis. Patient on well repeat exam at 6:35 AM and will be discharged to home. Treatment Plan: Follow-up with primary care physician. Return if worse. Disposition: Discharge Impression: Acute left upper quadrant abdominal pain of uncertain etiology This note was generated with [employer] dictation software. It may contain incorrect words, spelling, and punctuation that were not noted in review of the chart prior to signing ED Disposition - Plan for ED Patient: Disposition: Home or Assisted Living Instructions: ED Abdominal Pain Unkn Cause Fem Referrals: Christophe Dozier MD [Primary Care Provider] - 3-5 Days if not improving Additional Instructions: Tylenol and/or Motrin for pain. Follow-up with your doctor if not improving. Return emergency department if feeling worse. All your lab tests tonight including your CAT scan and blood work were unremarkable.
[2020-01-24 04:29] LABS: Absolute Lymphocyte Count 2.38 X10^3/uL (0.83-4.51); Absolute Neutrophil Count 5.2 X10^3/uL (2.0-7.7); Basophil# 0.06 X10^3/uL; Basophil% 0.7 % (0-1); Eosinophils% 3.5 % (0-5); Hematocrit 42.8 % (37-47); Hemoglobin 14.1 g/dL (12.0-15.0); Lymphocyte # 2.38 X10^3/ul (4.0); Lymphocyte % 27.5 % (19-41); Mean Corp Hgb Conc 32.9 g/dL (32-36); Mean Corpuscular Hgb 30.1 pg (27.0-32.0); Mean Corpuscular Volume 91.3 fL (81-99); Mean Platelet Vol. 10.6 fl (6.2-12.0); Monocyte# 0.68 X10^3/uL; Monocyte% 7.8 % (0-10); NRBC Flagged by Analyzer 0 % (0-5); Neutrophil # 5.22 X10^3/uL (2.7-7.7); Neutrophil % 60.2 % (47-70); Platelet Count 310 K/mm3 (150-450); RBC Distribution Width SD 43.1 fl (35.1-43.9); Red Blood Count 4.69 M/mm3 (4.2-5.4); White Blood Count 8.7 K/mm3 (4.4-11.0)
[2020-01-24] MEDS: Ondansetron 4 MG/2 ML Vial IV (04:32)
[2020-01-24 04:34] LABS: Internal QC Validated? YES +Cl - CLEAR BKGD; Pregnancy, Serum, hCG Quali. NEGATIVE Negative
[2020-01-24] MEDS: Ketorolac 30 MG/ML Syringe IV (04:34)
--- NOTE | 2020-01-24 04:45 | CT_ITS ---
STUDY: CT ABDOMEN AND PELVIS WITHOUT CONTRAST REASON FOR EXAM: Female, 34 years old. LEFT SIDED FLANK PAIN THAT RADIATES INTO BACK. W NAUSEA RADIATION DOSAGE (If Supplied By Facility): CTDIvol = ( 21.44 ) mGy, DLP = ( 1092.59 ) mGycm TECHNIQUE: Transaxial images were obtained from the dome of the diaphragm to the symphysis pubis without oral contrast, and without intravenous contrast. Sagittal and coronal images were reconstructed. Individualized dose optimization techniques were used for this CT. COMPARISON: None. FINDINGS: The visualized lung bases are unremarkable. The visualized portions of the heart are within normal limits. Normal liver. There are gallstones. There is NO specific evidence of cholecystitis. There is NO biliary ductal dilatation. Normal spleen. Normal pancreas. Normal bilateral adrenal glands. Normal right kidney. Normal left kidney. Normal visualized stomach. Normal small intestine. Normal colon. The appendix is visualized and appears normal. Normal abdominal aorta. Normal inferior vena cava. Normal retroperitoneum. Normal urinary bladder. Normal uterus and ovaries. There is NO ascites or free air, abscess or adenopathy. Normal abdominal wall. Normal osseous structures. CT/Abdomen/Pelvis without Cont IMPRESSION: There are gallstones. There is NO specific evidence of cholecystitis. There is NO biliary ductal dilatation. There are NO kidney stones or ureteral stones. There is NO hydronephrosis. There is NO acute bowel process. The appendix is normal. There is NO ascites or free air, abscess or adenopathy. Electronically Signed: Gabo Zamora MD at 5:06 EST , Service support ,
[2020-01-24 04:56] LABS: AST(SGOT) 12 U/L (15-37); Alanine Aminotransfer ALT/SGPT 24 U/L (13-56); Albumin, Serum 3.7 g/dL (3.2-5.0); Alkaline Phosphatase 135 U/L (45-117); Anion Gap 4 (5-15); BUN 10 mg/dL (7-18); BUN/Creat Ratio 10.5 RATIO (10-20); Bilirubin, Direct < 0.05 mg/dL (0.00-0.30); Chloride 104 mmol/L (98-107); Creatinine, Serum 0.95 mg/dL (0.55-1.02); EST Glomerular Filtration Rate 72 mL/min (>60); Est Glom Filt Rate - Afr Amer 87 mL/min (>60); Estimated Creatinine Clearance 73.41 ml/min; Globulin 3.8 g/dL (2.2-4.2); Glucose 124 mg/dL (74-106); Lipase 233 U/L (73-393); Potassium 3.8 mmol/L (3.5-5.1); Protein, Total 7.5 g/dL (6.4-8.2); Sodium Level 138 mmol/L (136-145)
--- NOTE | 2020-01-24 05:30 | ED.DEP ---
ED Disposition - Plan for ED Patient: Disposition: Home or Assisted Living Instructions: ED Abdominal Pain Unkn Cause Fem Referrals: Christophe Dozier MD [Primary Care Provider] - 3-5 Days if not improving Additional Instructions: Tylenol and/or Motrin for pain. Follow-up with your doctor if not improving. Return emergency department if feeling worse. All your lab tests tonight including your CAT scan and blood work were unremarkable.
[2020-01-24 06:25] LABS: Mucous, Urine 0 SEEN /hpf (<or=2+); Red Blood Cells-Urine 0 SEEN /hpf (0-5)
[2020-01-24 06:26] LABS: Color, Urine Yellow (Yellow); Glucose, Dipstick Normal (Normal); Ketone-Dipstick Negative (Negative); Leukocyte Esterase-Dipstick Negative /ul (Negative); Nitrite-Dipstick Negative (Negative); Occult Blood-Urine Negative /ul (Negative); Protein-Dipstick Negative (Negative); Urine Bilirubin Dipstick Negative (Negative); Urine Clarity Cloudy (Clear); Urine Urobilinogen Normal (Normal)
[2020-01-24 06:33] LABS: Amorphous Sediment 3+; Bacteria 2+ /hpf (None Seen)
[2020-01-24 06:34] LABS: Squamous Epithelial Cells - UA 0-5 SEEN /hpf (5-10)
[2020-01-24 06:35] LABS: White Blood Cells 0-5 SEEN /hpf (0-5)
[2020-01-24 06:44] VITALS: BP 136/83; PULSE 65; RESP 18; O2SAT 99
== END 2020-01-24 06:45 | disposition home or self-care (01) ==
PROVIDERS: Emergency Provider Emergency Medicine; PCP Family Medicine
DX: R10.12 Left upper quadrant pain (principal); R11.0 Nausea
CPT/HCPCS: 74176; 80048; 80076; 81001; 83690; 84703; 85025; 96374; 96375; 99283; J7030; A4216; J2405

== ENCOUNTER → 2020-02-11 | Outpatient (CLI) | payer OTHER, SELFPAY ==
[2020-01-24 04:07] VITALS: BMI 40.9
[2020-02-16 13:26] LABS: HPV Reflexed? NOT INDICATED
== END | disposition home or self-care (01) ==
LOC: LABSPEC 10:44
PROVIDERS: PCP Family Medicine; Visit Provider Obstetrics & Gynecology
DX: Z12.4 Encounter for screening for malignant neoplasm of cervix (principal)
CPT/HCPCS: 88175; G0145

== ENCOUNTER 2020-09-06 21:04 | Emergency (ER) | payer OTHER, SELFPAY ==
[2020-09-06 21:05] VITALS: BP 154/113; PULSE 77; RESP 14; TEMP 36.3; O2SAT 99; BMI 38.5
--- NOTE | 2020-09-06 21:18 | EDS_ITS ---
HPI History of Present Illness Chief Complaint: Abd Pain Informant: patient Narrative Narrative: 35-year-old female presented to the emergency room for the evaluation abdominal pain. She tells me that in January she was seen in the emergency department left upper quadrant abdominal pain had a CT that showed gallstones. She states that she had a severe gallstone attack last week and developed diarrhea afterwards. She points to the left upper quadrant and left flank with the sore areas where she hurts. She states the day it seems to be hurting more and she notes nausea. When I point out to the patient that her gallbladder would be in her right upper quadrant she did moves the source of the pain to more in the epigastrium area but also with pain to the left flank. No history of ureterolithiasis. No change in urination no fevers. No shortness of breath. PFSH PFS Medical History (Updated 09/06/20 @ 23:[address] Salomon Tejada DO) Back pain Home Medications ondansetron 4 mg PO Q6H PRN PRN #10 tab 09/06/20 [Rx Last Taken Unknown] pantoprazole [Protonix] 40 mg PO DAILY #30 tab 09/06/20 [Rx Last Taken Unknown] Allergy/AdvReac Type Severity Reaction Status Date / Time No Known Allergies Allergy Verified 09/06/20 21:07 Surgical History H/O: section Social History Smoking Status: Never smoker alcohol intake: never ROS ROS ED Constitutional Constitutional ED: Denies chills or weight loss Eyes Eyes: Denies change in vision or diplopia ENT ENT ED: Denies ear pain, rhinorrhea or sore throat Cardiovascular Cardiovascular: Denies chest pain, orthopnea, palpitations or racing heartbeat Respiratory/Chest Respiratory/Chest: Denies cough, dyspnea or orthopnea Gastrointestinal Gastrointestinal: Reports abdominal pain, diarrhea and nausea; Denies vomiting Genitourinary Genitourinary ED: Denies dysuria, hematuria or urinary frequency Musculoskeletal Musculoskeletal: Denies arthralgias or myalgias Integumentary Denies abscess or rash Neurologic Neurologic: Denies headache(s) or weakness Psychiatric Psychiatric: Denies anxiety, depression, suicidal ideation or suicidal thoughts Endocrine Endocrinology: Denies polydipsia, polyphagia or polyuria Allergic/Immunologic Allergic/Immunologic ED: Denies mouth swelling, tongue swelling or urticaria EXAM Physical Exam Const Vital Signs: 09/06/20 21:05 09/06/20 23:08 Temperature 97.4 F L Temperature Source Temporal Pulse Rate 77 Respiratory Rate 14 17 Blood Pressure 154/113 H Blood Pressure Mean 126 Pulse Ox 99 Oxygen Delivery Method Room Air Room Air Positive well nourished and well developed General Appearance ED: well developed HEENT Reports normocephalic, head/scalp atraumatic and moist mucous membranes Eyes PERRL and EOMs intact bilaterally Neck no lymphadenopathy, supple and no JVD Resp normal respiratory effort and clear to auscultation bilaterally Cardio regular rate, regular rhythm and no murmurs GI normal to inspection, nondistended, normoactive bowel sounds and non-tender GI Narrative: I have not able to really elicit any pain upon palpation Palpation: soft Back/Spine no CVA tenderness and normal ROM Extremity normal to inspection General Extremety ED: Negative for edema General Extremity: Negative for edema Neuro oriented x3 and CN's II-XII intact bilaterally Sensorium / Orientation: alert Motor Exam: strength 5/5 throughout Psych mental status grossly normal Mood & Affect: Negative for depressed or tearful Skin no rashes or lesions noted and no wounds MDM MDM MDM Narrative Medical decision making narrative: Patient received Toradol and Zofran for pain and nausea. White count is 7.2. No left shift. CMP and lipase were normal. test is negative. CT the abdomen pelvis does not demonstrate anything on the left side of abdomen to explain her pain. Multiple gallstones were noted. Formal gallbladder ultrasound was obtained. Patient will be referred to general surgery. She is already been referred to surgery has had difficulty getting her ultrasound done. Over this can expedite it for her. I can write for Zofran for home. I will also write for some Protonix. I would recommend the Lab Data Attestation: I reviewed the patient's lab results. Labs: Laboratory Results - last 24 hr 09/06/20 09/06/20 09/06/20 21:20 21:20 21:20 WBC 7.2 RBC 4.79 Hgb 14.3 Hct 43.7 MCV 91.2 MCH 29.9 MCHC 32.7 RDW Std Deviation 41.2 RDW Coeff of Darby 12.4 Plt Count 280 MPV 11.0 Immature Gran % (Auto) 0.100 Neut % (Auto) 46.1 L Lymph % (Auto) 40.9 [place] % (Auto) 6.8 Eos % (Auto) 5.5 H Baso % (Auto) 0.6 Absolute Neuts (auto) 3.3 Absolute Lymphs (auto) 2.96 Nucleated RBC % 0 Sodium 140 Potassium 3.7 Chloride 106 Carbon Dioxide 30.0 Anion Gap 4 L BUN 9 Creatinine 0.90 Estim Creat Clear Calc 76.77 Est GFR (MDRD) Af Amer 93 Est GFR (MDRD) Non-Af 77 BUN/Creatinine Ratio 10.1 Glucose 114 H Calcium 8.8 Total Bilirubin 0.20 AST 14 L ALT 27 Alkaline Phosphatase 123 H Total Protein 7.8 Albumin 3.9 Globulin 3.9 Albumin/Globulin Ratio 1.0 Lipase 159 Serum , Qual NEGATIVE Urine Color Urine Clarity Urine pH Ur Specific [place] Urine Protein Urine Glucose (UA) Urine Ketones Urine Occult Blood Urine Nitrite Urine Bilirubin Urine Urobilinogen Ur Leukocyte Esterase Urine RBC Urine WBC Ur Squamous Epith Cells Urine Bacteria Urine Mucus 09/06/20 22:40 WBC RBC Hgb Hct MCV MCH MCHC RDW Std Deviation RDW Coeff of [place] Plt Count MPV Immature Gran % (Auto) Neut % (Auto) Lymph % (Auto) [place] % (Auto) Eos % (Auto) Baso % (Auto) Absolute Neuts (auto) Absolute Lymphs (auto) Nucleated RBC % Sodium Potassium Chloride Carbon Dioxide Anion Gap BUN Creatinine Estim Creat Clear Calc Est GFR (MDRD) Af Amer Est GFR (MDRD) Non-Af BUN/Creatinine Ratio Glucose Calcium Total Bilirubin AST ALT Alkaline Phosphatase Total Protein Albumin Globulin Albumin/Globulin Ratio Lipase Serum , Qual Urine Color Yellow Urine Clarity Clear Urine pH 6.0 Ur Specific [place] 1.015 Urine Protein Negative Urine Glucose (UA) Normal Urine Ketones Negative Urine Occult Blood Negative Urine Nitrite Negative Urine Bilirubin Negative Urine Urobilinogen Normal Ur Leukocyte Esterase Negative Urine RBC 0 SEEN Urine WBC 0-5 SEEN Ur Squamous Epith Cells 0-5 SEEN Urine Bacteria 0 SEEN Urine Mucus 0 SEEN Radiography Diagnostic Testing: Radiology Impression Abdomen/Pelvis CT 09/06/20 22:05 IMPRESSION: Multiple small gallstones. Electronically Signed: Duran Ponce MD at 22:38 EDT , Service support , Gallbladder Ultrasound 09/06/20 22:50 IMPRESSION: Cholelithiasis. No evidence of acute cholecystitis. Electronically Signed: Cata Watters MD at 23:43 EDT Tel , Service support , Discharge Plan Triage Chief Complaint: Abd Pain ED Provider: Salomon Tejada Dx/Rx/DC Orders Clinical Impression: Abdominal pain, acute, Cholelithiasis Instructions: ED Abdominal Pain Unkn Cause Fem Prescriptions: New ondansetron [ondansetron] 4 MG tablet 4 mg PO Q6H PRN PRN (Reason: Nausea) Qty: 10 RF: 0 pantoprazole [Protonix] 40 mg tablet,delayed release (DR/EC) 40 mg PO DAILY Qty: 30 RF: 0 Primary Care Provider: Christophe Dozier Referrals: Christophe Dozier MD [Primary Care Provider] - As Needed Activity Restrictions/Additional Instructions: I would recommend you call the surgeon and your doctor referred you to. You can tell them that you have already obtained a gallbladder ultrasound. Disposition Disposition: Home, Self Care
[2020-09-06] MEDS: Ketorolac 30 MG/ML Syringe IV (21:27)
[2020-09-06] MEDS: Ondansetron 4 MG/2 ML Vial IV (21:27)
[2020-09-06 21:37] LABS: Absolute Lymphocyte Count 2.96 X10^3/uL (0.83-4.51); Absolute Neutrophil Count 3.3 X10^3/uL (2.0-7.7); Basophil# 0.04 X10^3/uL; Basophil% 0.6 % (0-1); Eosinophils% 5.5 % (0-5); Hematocrit 43.7 % (37-47); Hemoglobin 14.3 g/dL (12.0-15.0); Lymphocyte # 2.96 X10^3/ul (0.83-4.51); Lymphocyte % 40.9 % (19-41); Mean Corp Hgb Conc 32.7 g/dL (32-36); Mean Corpuscular Hgb 29.9 pg (27.0-32.0); Mean Corpuscular Volume 91.2 fL (81-99); Monocyte# 0.49 X10^3/uL; Monocyte% 6.8 % (0-10); NRBC Flagged by Analyzer 0 % (0-5); Neutrophil # 3.34 X10^3/uL (2.7-7.7); Neutrophil % 46.1 % (47-70); Platelet Count 280 K/mm3 (150-450); RBC Distribution Width CV 12.4 % (11.6-14.6); RBC Distribution Width SD 41.2 fl (35.1-43.9); Red Blood Count 4.79 M/mm3 (4.2-5.4); White Blood Count 7.2 K/mm3 (4.4-11.0)
[2020-09-06 21:59] LABS: Internal QC Validated? YES +Cl - CLEAR BKGD; Pregnancy, Serum, hCG Quali. NEGATIVE Negative
[2020-09-06 22:01] LABS: AST(SGOT) 14 U/L (15-37); Alanine Aminotransfer ALT/SGPT 27 U/L (13-56); Albumin, Serum 3.9 g/dL (3.2-5.0); Alkaline Phosphatase 123 U/L (45-117); Anion Gap 4 (5-15); BUN 9 mg/dL (7-18); BUN/Creat Ratio 10.1 RATIO (10-20); Calcium,Total 8.8 mg/dL (8.5-10.1); Chloride 106 mmol/L (98-107); EST Glomerular Filtration Rate 77 mL/min (>60); Est Glom Filt Rate - Afr Amer 93 mL/min (>60); Estimated Creatinine Clearance 76.77 ml/min; Globulin 3.9 g/dL (2.2-4.2); Glucose 114 mg/dL (74-106); Lipase 159 U/L (73-393); Potassium 3.7 mmol/L (3.5-5.1); Protein, Total 7.8 g/dL (6.4-8.2); Sodium Level 140 mmol/L (136-145)
--- NOTE | 2020-09-06 22:05 | CT_ITS ---
STUDY: CT ABDOMEN AND PELVIS WITHOUT CONTRAST REASON FOR EXAM: Female, 35 years old. Flank pain RADIATION DOSAGE (If Supplied By Facility): CTDIvol = ( 18.41 ) mGy, DLP = ( 984.39 ) mGycm TECHNIQUE: Transaxial images were obtained from the dome of the diaphragm to the symphysis pubis without oral contrast, and without intravenous contrast. Sagittal and coronal images were reconstructed. Individualized dose optimization techniques were used for this CT. COMPARISON: Comparison is made with prior study dated 01/24/2020. FINDINGS: The visualized lung bases are unremarkable. The visualized portions of the heart are within normal limits. Normal liver. There are multiple small gallstones. Normal spleen. Normal pancreas. Normal bilateral adrenal glands. Normal right kidney. Normal left kidney. There is a small hiatal hernia. Normal small intestine. Normal colon. The appendix is visualized and appears normal. Normal abdominal aorta. Normal inferior vena cava. There is borderline retroperitoneal lymphadenopathy with enlarged nodes no greater than 10mm in the short axis diameter. Normal urinary bladder. Normal abdominal wall. Normal osseous structures. CT/Abdomen/Pelvis without Cont IMPRESSION: Multiple small gallstones. Electronically Signed: Duran Ponce MD at 22:38 EDT , Service support ,
--- NOTE | 2020-09-06 22:50 | US_ITS ---
STUDY: ABDOMINAL ULTRASOUND - RIGHT UPPER QUADRANT REASON FOR VISIT: Female, 35 years old abdominal pain TECHNIQUE: Ultrasound evaluation of the right upper quadrant was performed with real-time and static olguin-scale imaging. TECHNICAL QUALITY: Adequate. COMPARISON: CT abdomen 09/06/2020. FINDINGS: Liver: The liver measures 18.1 cm. There is normal echogenicity of the liver. The bile ducts are within normal limits. There is hepatic color flow. The direction of portal flow is hepatopetal. There is no demonstrated mass lesion. Gallbladder: Normal distended gallbladder. The gallbladder wall measures 3 mm. There is a negative sonographic Bang''s sign. There is no pericholecystic fluid. Large shadowing stones in the gallbladder fundus. Common Bile Duct (C.B.D.): The common bile duct measures 4 mm. Pancreas: Demonstrate segments are unremarkable. The tail is incompletely seen. There is normal echogenicity of the pancreas. There is no demonstrated pancreatic mass or cyst. Right Kidney: Normal size of the right kidney. The right kidney measures 11.9 x 3.6 x 4.9 cm. Normal renal cortex. The right cortex measures 1.3 cm. There is no demonstrated renal mass or cyst. There is no right hydronephrosis. US/Gallbladder IMPRESSION: Cholelithiasis. No evidence of acute cholecystitis. Electronically Signed: Cata Watters MD at 23:43 EDT Tel , Service support ,
[2020-09-06 23:00] LABS: Bacteria 0 SEEN /hpf (None Seen); Mucous, Urine 0 SEEN /hpf (<or=2+); Red Blood Cells-Urine 0 SEEN /hpf (0-5)
[2020-09-06 23:04] LABS: Color, Urine Yellow (Yellow); Glucose, Dipstick Normal (Normal); Ketone-Dipstick Negative (Negative); Leukocyte Esterase-Dipstick Negative /ul (Negative); Nitrite-Dipstick Negative (Negative); Occult Blood-Urine Negative /ul (Negative); Protein-Dipstick Negative (Negative); Specific Gravity, Urine 1.015 (1.002-1.030); Urine Bilirubin Dipstick Negative (Negative); Urine Clarity Clear (Clear); Urine Urobilinogen Normal (Normal)
[2020-09-06 23:08] VITALS: RESP 17
[2020-09-06 23:10] LABS: Squamous Epithelial Cells - UA 0-5 SEEN /hpf (5-10); White Blood Cells 0-5 SEEN /hpf (0-5)
[2020-09-07 00:09] VITALS: BP 134/84; PULSE 65; RESP 18; O2SAT 100
== END 2020-09-07 00:09 | disposition home or self-care (01) ==
PROVIDERS: Emergency Provider Emergency Medicine; PCP Family Medicine
DX: K80.20 Calculus of gallbladder without cholecystitis without obstruction (principal); Z79.899 Other long term (current) drug therapy
CPT/HCPCS: 74176; 76705; 80053; 81001; 83690; 84703; 85025; 96374; 96375; 99283; A4216; J2405

== ENCOUNTER 2020-09-20 09:00 | Outpatient (RCR) | payer OTHER, SELFPAY ==
--- NOTE | 2020-08-11 18:59 | HP.PTEVAL ---
Patient's Visit Information RICHI AMADOR is a 35 year old F referred to Physical Therapy by INGRID TolbertM with a diagnosis of L plantarfascitis. Date of Evaluation: 08/11/20 Physical Therapist: David Rayo, PT, ATC - Visit Plan Frequency: 2x /Week Duration: 2 Weeks Plan: L foot DTR, stick roll out, stretching, US, and HEP - Subjective Pt reports she has had L heel pain for several months. Pt reports she was always able to kind of ignore it, but lately the pain has become so severe that she had to go and see a doctor. Pt reports she received xrays which revealed a bone spur. Pt reports she was given a bunch of exercises to perform for this condition, however, the exercises made her more sore so she quit doing them. Pt reports her pain is worst first thing in the morning. Pt reports she feels better when she is barefoot than when she is sitting. Pt denies tingling or numbness in L foot. Pt reports no sleep difficulty at this time as she notes she feels great when she is sitting or lying down. 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 0/10 pain at rest, 8/10 pain at worst. - Pain L foot Pain Intensity (Out of 10): 0 Pain Intensity Range: 8 - Objective Neuro: B LE sensation is WNL to light touch. B patellar reflex= 2/3. ROM: R ankle DF= 2, PF= 60; L ankle DF= 5, PF= 60. MMT: B ankles 5/5 throughout. Palpation: Pt is sore along L plantarfascia and spring ligament of L foot - Goals Goal 1:: I with HEP after 4 visits Goal Time Frame: 2 Weeks - Rehabilitation Potential Physical Therapy Diagnosis: Pt has L foot pain and limited DF ROM secondary to L foot plantarfascitis Rehabilitation Potential: Good - Anticipated Interventions Patient/Client Instruction: Educate patient on: Condition, Plan of Care For the Purpose of:: To improve self management Therapeutic Exercise to Include: Flexibilty training, Passive ROM, Active ROM For the Purpose of:: To decrease pain, To increase ROM Manual Therapy Techniques to Include: Soft tissue mobilization For the Purpose of:: To decrease pain, To increase ROM Thank you for the opportunity to evaluate your patient. For Medicare and Medicare HMO plans, please review the plan of care and approve it. It will need to be FAXED BACK to us at [phone] for Medicare purposes. For Medicare only, by signing this I certify the plan of care. Please let me know if there are questions or concerns regarding this plan of care. Physician Signature: Date:
--- NOTE | 2020-08-24 09:07 | HP.PTEVAL2_ITS ---
Patient's Visit Information RICHI AMADOR is a 35 year old F referred to Physical Therapy by Dr. Colleen Diop DPM with a diagnosis of BACK PAIN. Date of Evaluation: 08/24/20 Physical Therapist: Anaya Diamond PT, Cert MDT - Visit Plan Frequency: 2-3x /Week Duration: 4-6 Weeks Plan: LAND AND AQUATIC THERPAY. POSTURE CORRECTION/STRENGTHENING, INSTRUCTION IN APPROPRIATE BODY MECHANICS AND ACTIVITY MODIFICATIONS. DLS WITH A NEUTRAL SPINE TOLERATED. ДМИТРИЙ LE ROM, STRETCHING AND STRENGTHENING. HEP INSTRUCTION. - Subjective Subjective: Work/Leisure: TEACHER. Disability: NO. Present symptoms: RIGHT LOW BACK. ONE TIME FELT PAIN IN RIGHT THIGH BUT NOT PRESENTLY. PATIENT DENIES ДМИТРИЙ LE NUMBNESS AND TINGLING. LEFT FOOT PAIN - SEEING MARY FRANCO PT. FOOT THROBS WITH WALKING. Present since: LAST SUMMER. Pain Scale: WORST 5/10, LEAST 0/10. Currently: 10. Commenced as a result of: NO APPARENT REASON. Symptoms at onset: SAME. Worse: BENDING OVER QUICKLY - SPASMS, L SDLY. Better: HEATING PAD, PRESCRIPTION PAIN PATCHES FROM FRIEND. Disturbed sleep: YES. Previous history/Previous treatment: 3 YEARS AGO AFTER DELIVERY OF DAUGHTER TREATED WITH PHYSICAL AND EVENTUALLY RESOLVED BUT DOES HAVE GALLSTONES AND THAT SEEMS TO GIVE HER BACK PAIN. Treatment this episode: CHIROPRACTOR X 4-5 VISITS LAST SUMMER AND SEEMED TO GET BETTER BUT NOW ITS BACK. Coughing/sneezing/straining: NEGATIVE. Gait: L FOOT PLANTAR FASCITIS - LIMPING ON L FOOT. STARTED ABOUT SPRING 2020. Difficulty initiating urinatin: NO. Accidents: NO. Unexplained weight loss: NO. Imaging: NO RECENT LOW BACK X-RAYS. 3 YEARS AGO BACK X-RAY WAS NORMAL PER PATIENT REPORT. RECENT L FOOT X-RAY SHOWED SMALL HEEL SPUR. PMH: UNREMARKABLE - Objective Objective: Sitting/Standing Posture: FAIR. SLOUCHED IN SITTING. Lordosis: NORMAL. Lateral shift: NO. Relevant shift: N/A. Active Correction of posture: BETTER. Other Observations: INDEP GAIT AND TRANSFERS WITH NO GROSS DEVIATIONS NOTED. Motor deficit: ДМИТРИЙ LE STRENGTH 5/5 WITH MMT'ING EXCEPT RIGHT HIP AND KNEE 4/5. PATIENT IS ABLE TO HEEL AND TOE WALK BUT REPORTS PAIN L LE WITH HEEL WALKING. Sensory deficit: ДМИТРИЙ LE LIGHT TOUCH SENSATION INTACT AND SYMMETRICAL. ROM deficit: RIGHT HIP ER LIMITED COMPARED TO LEFT. Reflexes: 1/2 ДМИТРИЙ LE'S. Dural Signs: NEGATIVE ДМИТРИЙ LE'S. Lumbar mvmt loss: flex - NIL. ext - MOD. R SG - MIN. L SG - MIN. Core strength: POOR. Palpation: MILD TENDERNESS WITH PALPATION OF THE RIGHT SI REGION. TREATMENT: NEUROMUSCULAR REEDUCATION - RETRAINING OF MVMT AND POSTURE FOR SITTING, LYING AND STANDING ACTIVITIES. - Goals Goal 1:: DECREASE C/O RIGHT LOW BACK PAIN Goal Time Frame: 4-6 Weeks Goal 2:: IMPROVE LIFTING, EXERCISING, WALKING SITTING STANDING, SLEEP, SOCIAL LIFE, TRAVEL AND HOMEMAKING FUNCTION. Goal Time Frame: 4-6 Weeks Goal 3:: INSTRUCT IN PROPHYLAXIS Goal Time Frame: 4-6 Weeks - Anticipated Interventions Patient/Client Instruction: Educate patient on: Condition, Plan of Care, Risk Factors For the Purpose of:: To improve self management Therapeutic Exercise to Include: Strength training, Body mechanics, Postural training, Flexibilty training, Neuromotor development, In an aquatic setting, Dynamic Lumbar Stabilization For the Purpose of:: To decrease pain, To improve muscle performance and motor function, To increase tolerance to activity/condition/position, To improve ability of physical actions for home/community/work/leisure Thank you for the opportunity to evaluate your patient. For Medicare and Medicare HMO plans, please review the plan of care and approve it. It will need to be FAXED BACK to us at [phone] for Medicare purposes. For Medicare only, by signing this I certify the plan of care. Please let me know if there are questions or concerns regarding this plan of care. Physician Signature: Date:
--- NOTE | 2020-09-20 10:13 | HP.PTDCS(2) ---
It has been my pleasure to treat RICHI AMADOR referred by Dr. Colleen Diop, INGRID[facility], with the diagnosis of BACK PAIN for a total of 10 visit(s). Discharge Date: 09/20/20 Please see the following information for a summary of their discharge status. Subjective: PATIENT REPORTS SHE HAS AN NADINE'T WITH DR. LEI 10/10/20. STATES SHE WOULD LIKE TO CONTINUE WITH HER EX'S INDEP'LY BETWEEN NOW AND THEN AND PLANS TO CANCEL THAT NADINE'T IF SHE IS PAINFREE BY THEN. PATIENT REPORTS THAT THE CONSTANT DULL ACHE IN HER BACK IS ALMOST GONE. STATES SHE HAS LESS PAIN WHEN SHE DOES HER EX' S IN THE MORNING AND ON THOSE DAYS ACTUALLY DOESN'T HAVE ANY PAIN BUT IF SHE MISSES DOING HER EX'S SHE STILL HAS THE DULL ACHE WITH CERTAIN MVMTS. PATIENT DENIES ДМИТРИЙ LE SX'S NOW INCLUDING L FOOT. CURRNET SX'S INCLUDE RIGHT LOW BACK DULL ACHE WITH CERTAIN MVMTS SOME DAYS. PAIN IS ALMOST DAILY BUT HAS HAD SOME PAINFREE DAYS. PATIENT REPORTS SHE DID REALLY WELL WITH THE POOL SESSION AND SHE REALLY LIKES HOW MUCH CORE WORK SHE LEARNED. (PATIENT HAS A POOL AT HOME). % Improvement: 75 Objective/Function/Assessment: PATIENT WAS SEEN TODAY FOR RE-ASSESSMENT OF PROGRESS TOWARD THE SET PT GOALS AND THE NEED FOR FURTHER PHYSICAL THERAPY VS READINESS FOR DISCHARGE. UPON EXAM TODAY: LUMBAR ROM, LE STRENGTH AND LE ROM IS WFL AND PAINFREE WITH TESTING TODAY. SHE IS INDEP WITH BOTH LAND AND WATER EX PROGRAMS AND ALL PT GOALS HAVE BEEN MET HOWEVER THERE IS ROOM FOR FURTHER IMPROVEMENT LBP STILL OCCURS NEAR DAILY. Patient Goals: Decrease Pain, Other Other Goals: TO BE ABLE TO BE ACTIVE AND EXERCISE NORMALLY. Goal 1:: DECREASE C/O RIGHT LOW BACK PAIN Goal Progress: Goal Met Goal 2:: IMPROVE LIFTING, EXERCISING, WALKING SITTING STANDING, SLEEP, SOCIAL LIFE, TRAVEL AND HOMEMAKING FUNCTION. Goal Progress: Goal Met Goal 3:: INSTRUCT IN PROPHYLAXIS Goal Progress: Goal Met Plan: D/C TO INDEP EX. PATIENT IS AGREEABLE. If there are questions or concerns regarding this patient's physical therapy, please feel free to call me at [phone]. Thank you for the referral of this patient. Sincerely, Anaya Diamond, PT, Cert MDT
== END 2020-09-20 19:00 | disposition home or self-care (01) ==
LOC: PT 09:00
PROVIDERS: PCP Family Medicine; Referring Provider Podiatrist Foot & Ankle Surgery; Visit Provider Podiatrist Foot & Ankle Surgery
DX: M72.2 Plantar fascial fibromatosis (principal)
CPT/HCPCS: 97014; 97035; 97110; 97112; 97113; 97140; 97161; 97162; 97164; 97530; G0283

== ENCOUNTER 2021-03-12 08:54 | Emergency (ER) | payer OTHER, SELFPAY ==
[2021-03-12 08:55] VITALS: BP 147/98; PULSE 62; RESP 16; TEMP 35.7; O2SAT 100; BMI 32.9
--- NOTE | 2021-03-12 09:29 | EDS_ITS ---
HPI History of Present Illness Chief Complaint: Abd Pain Informant: patient Narrative Narrative: 36-year-old female presenting to the emergency department with abdominal pain. Patient was seen by this physician last year and had a gallbladder ultrasound and CT scan that showed gallstones. Her pain is been epigastric and left-sided and into the back. Following the ED visit last year she followed up with Dr. Avitia. She states that it was felt that it could be an atypical presentation of gallbladder disease and offered cholecystectomy but was not convinced that it would fix her pain. She states that she elected to not to go through with the surgery and see how things went. She has had a couple episodes since that time where she has had this pain but beginning yesterday afternoon the current episode was much worse. She had a bout of emesis just prior to arrival in the ED. Since vomiting and taking [id number] medication she states that she is feeling better. [facility] Medical History Back pain GERD (gastroesophageal reflux disease) Obesity Home Medications Bacillus coagulans 400 million cell chewable tablet cell PO 09/12/20 [History Last Taken Unknown] cetirizine 10 mg capsule 10 mg PO DAILY PRN 10/24/20 [History Last Taken Unknown] multivitamin 1 tab PO DAILY 10/24/20 [History Last Taken Unknown] omega-3 fatty acids 1,000 mg capsule 1,000 mg PO DAILY 10/24/20 [History Last Taken Unknown] turmeric 400 mg capsule mg PO 10/24/20 [History Last Taken Unknown] fluconazole 150 mg tablet 150 mg PO Q3D #2 tab 02/13/21 [Rx Last Taken Unknown] Allergy/AdvReac Type Severity Reaction Status Date / Time house dust Allergy Mild itchy Verified 03/12/21 08:58 eyes, sneezing mold Allergy Mild itchy Verified 03/12/21 08:58 eyes, sneezing Family History Mother Diabetes Father Crohn's disease Hypertension Hyperlipidemia Grandfather Diabetes CVA (cerebral vascular accident) Grandmother CVA (cerebral vascular accident) Surgical History H/O: section History of 2 sections History of dilation and curettage History of endometrial ablation Social History household members: spouse and children housing: house number of children: 2 pets and animals: Yes pets and animals: dog(s) Smoking Status: Never smoker alcohol intake: current alcohol intake frequency: a few times a month what type of physical activity do you participate in: walking, bicycling and weight training do you feel safe at home: Yes ROS ROS ED Constitutional Constitutional ED: Denies chills, fever(s) or weight loss Eyes Eyes: Denies change in vision or diplopia ENT ENT ED: Denies ear pain, rhinorrhea or sore throat Cardiovascular Cardiovascular: Denies chest pain, orthopnea, palpitations or racing heartbeat Respiratory/Chest Respiratory/Chest: Denies cough, dyspnea or orthopnea Gastrointestinal Gastrointestinal: Reports abdominal pain, nausea and vomiting; Denies diarrhea Genitourinary Genitourinary ED: Denies dysuria, hematuria or urinary frequency Musculoskeletal Musculoskeletal: Denies arthralgias or myalgias Integumentary Denies abscess or rash Neurologic Neurologic: Denies headache(s) or weakness Psychiatric Psychiatric: Denies anxiety, depression, suicidal ideation or suicidal thoughts Endocrine Endocrinology: Denies polydipsia, polyphagia or polyuria Allergic/Immunologic Allergic/Immunologic ED: Denies mouth swelling, tongue swelling or urticaria EXAM Physical Exam Const Vital Signs: 03/12/21 08:55 Temperature 96.2 F L Temperature Source Temporal Pulse Rate 62 Respiratory Rate 16 Blood Pressure 147/98 H Blood Pressure Mean 114 Pulse Ox 100 Oxygen Delivery Method Room Air Positive well nourished and well developed General Appearance ED: well developed HEENT Reports normocephalic, head/scalp atraumatic, TM's clear and moist mucous membranes Negative for trauma Tympanic Membrane ED: Yes TM's clear Eyes PERRL and EOMs intact bilaterally Neck no lymphadenopathy, supple and no JVD Resp normal respiratory effort and clear to auscultation bilaterally Cardio regular rate, regular rhythm and no murmurs GI normal to inspection, nondistended, normoactive bowel sounds and non-tender Palpation: soft Back/Spine no CVA tenderness and normal ROM Thoracic Spine / Upper Back: Negative for paraspinal muscle tenderness Extremity normal to inspection General Extremety ED: Negative for edema General Extremity: Negative for edema Neuro oriented x3 and CN's II-XII intact bilaterally Sensorium / Orientation: alert Motor Exam: strength 5/5 throughout Psych mental status grossly normal Mood & Affect: Negative for depressed or tearful Skin no rashes or lesions noted and no wounds MDM MDM MDM Narrative Medical decision making narrative: Basic blood work showed a normal white count at 7.5. Her CMP labs hemolyzed and needed to be redrawn a couple times. But eventually they returned with a nonobstructive pattern and normal lipase and amylase. She is not . Patient is feeling significantly better at this point. I do not think we necessarily need to do new imaging. She is going to follow-up with surgery. Lab Data Attestation: I reviewed the patient's lab results. Labs: Laboratory Results - last 24 hr 03/12/21 03/12/21 03/12/21 09:30 09:30 09:30 WBC 7.5 RBC 4.90 Hgb 14.4 Hct 44.1 MCV 90.0 MCH 29.4 MCHC 32.7 RDW Std Deviation 43.8 RDW Coeff of Darby 13.4 Plt Count MPV 12.1 H Immature Gran % (Auto) 0.400 Neut % (Auto) 75.7 H Lymph % (Auto) 15.4 L [place] % (Auto) 5.8 Eos % (Auto) 1.9 Baso % (Auto) 0.8 Absolute Neuts (auto) 5.7 Absolute Lymphs (auto) 1.15 Nucleated RBC % 0 Platelet Estimate ADEQUATE Sodium Cancelled Potassium Cancelled Chloride Cancelled Carbon Dioxide Cancelled Anion Gap Cancelled BUN Cancelled Creatinine Cancelled Estim Creat Clear Calc Cancelled Est GFR (MDRD) Af Amer Cancelled Est GFR (MDRD) Non-Af Cancelled BUN/Creatinine Ratio Cancelled Glucose Cancelled Calcium Cancelled Total Bilirubin Cancelled AST Cancelled ALT Cancelled Alkaline Phosphatase Cancelled Total Protein Cancelled Albumin Cancelled Globulin Cancelled Albumin/Globulin Ratio Cancelled Amylase Cancelled Lipase Cancelled Serum , Qual NEGATIVE 03/12/21 03/12/21 10:02 10:54 WBC RBC Hgb Hct MCV MCH MCHC RDW Std Deviation RDW Coeff of Darby Plt Count MPV Immature Gran % (Auto) Neut % (Auto) Lymph % (Auto) [place] % (Auto) Eos % (Auto) Baso % (Auto) Absolute Neuts (auto) Absolute Lymphs (auto) Nucleated RBC % Platelet Estimate Sodium Cancelled 138 Potassium Cancelled 4.2 Chloride Cancelled 108 H Carbon Dioxide Cancelled 26.0 Anion Gap Cancelled 4 L BUN Cancelled 10 Creatinine Cancelled 0.82 Estim Creat Clear Calc Cancelled 86.99 Est GFR (MDRD) Af Amer Cancelled 103 Est GFR (MDRD) Non-Af Cancelled 85 BUN/Creatinine Ratio Cancelled 12.3 Glucose Cancelled 106 Calcium Cancelled 8.7 Total Bilirubin Cancelled 0.20 AST Cancelled 11 L ALT Cancelled 19 Alkaline Phosphatase Cancelled 115 Total Protein Cancelled 7.4 Albumin Cancelled 3.6 Globulin Cancelled 3.8 Albumin/Globulin Ratio Cancelled 0.9 Amylase Cancelled 73 Lipase Cancelled 203 Serum , Qual Discharge Plan Triage Chief Complaint: Abd Pain ED Provider: Salomon Tejada Dx/Rx/DC Orders Clinical Impression: Abdominal pain, acute, Cholelithiasis, Vomiting Instructions: Treating Gallstones Prescriptions: No Action Digestive Advantage Probio-Pre 400 million cell tablet,chewable PO RF: 0 multivitamin [Multiple Vitamins] Tablet 1 tab PO DAILY RF: 0 Zyrtec 10 mg capsule 10 mg PO DAILY PRNRF: 0 omega-3 fatty acids [Fish Oil Concentrate] 1,000 mg capsule 1,000 mg PO DAILY RF: 0 turmeric 400 mg capsule PO RF: 0 fluconazole [Diflucan] 150 mg tablet 150 mg PO Q3D Qty: 2 RF: 0 Primary Care Provider: Christophe Dozier Referrals: Guillermo Avitia MD [STAFF PHYSICIAN] - As Needed Christophe Dozier MD [Primary Care Provider] - Disposition Disposition: Home, Self Care
[2021-03-12] MEDS: Ketorolac 30 MG/ML Syringe IV (09:44)
[2021-03-12 09:50] LABS: Absolute Lymphocyte Count 1.15 X10^3/uL (0.83-4.51); Absolute Neutrophil Count 5.7 X10^3/uL (2.0-7.7); Basophil# 0.06 X10^3/uL; Basophil% 0.8 % (0-1); Eosinophil# 0.14 X10^3/uL; Eosinophils% 1.9 % (0-5); Hematocrit 44.1 % (37-47); Hemoglobin 14.4 g/dL (12.0-15.0); Lymphocyte # 1.15 X10^3/ul (0.83-4.51); Lymphocyte % 15.4 % (19-41); Mean Corp Hgb Conc 32.7 g/dL (32-36); Mean Corpuscular Hgb 29.4 pg (27.0-32.0); Mean Platelet Vol. 12.1 fl (6.2-12.0); Monocyte# 0.43 X10^3/uL; Monocyte% 5.8 % (0-10); NRBC Flagged by Analyzer 0 % (0-5); Neutrophil # 5.66 X10^3/uL (2.7-7.7); Neutrophil % 75.7 % (47-70); POSITIVE COUNT YES; RBC Distribution Width CV 13.4 % (11.6-14.6); RBC Distribution Width SD 43.8 fl (35.1-43.9); White Blood Count 7.5 K/mm3 (4.4-11.0)
[2021-03-12 09:59] LABS: Internal QC Validated? YES +Cl - CLEAR BKGD; Pregnancy, Serum, hCG Quali. NEGATIVE Negative
[2021-03-12 10:28] LABS: Differential Indicated SCAN CRITERIA MET; Platelet Estimate ADEQUATE (ADEQ)
[2021-03-12 11:31] LABS: ALB/GLOB Ratio 0.9 RATIO (0.9-2.4); AST(SGOT) 11 U/L (15-37); Alanine Aminotransfer ALT/SGPT 19 U/L (13-56); Albumin, Serum 3.6 g/dL (3.2-5.0); Alkaline Phosphatase 115 U/L (45-117); Amylase 73 U/L (25-115); Anion Gap 4 (5-15); BUN 10 mg/dL (7-18); BUN/Creat Ratio 12.3 RATIO (10-20); Calcium,Total 8.7 mg/dL (8.5-10.1); Chloride 108 mmol/L (98-107); Creatinine, Serum 0.82 mg/dL (0.55-1.02); EST Glomerular Filtration Rate 85 mL/min (>60); Est Glom Filt Rate - Afr Amer 103 mL/min (>60); Estimated Creatinine Clearance 86.99 ml/min; Globulin 3.8 g/dL (2.2-4.2); Glucose 106 mg/dL (74-106); Lipase 203 U/L (73-393); Potassium 4.2 mmol/L (3.5-5.1); Protein, Total 7.4 g/dL (6.4-8.2); Sodium Level 138 mmol/L (136-145)
== END 2021-03-12 11:50 | disposition home or self-care (01) ==
PROVIDERS: Emergency Provider Emergency Medicine; PCP Family Medicine; Visit Provider Emergency Medicine
DX: K80.20 Calculus of gallbladder without cholecystitis without obstruction (principal); K21.9 Gastro-esophageal reflux disease without esophagitis; E66.9 Obesity, unspecified; Z79.899 Other long term (current) drug therapy
CPT/HCPCS: 36415; 80053; 82150; 83690; 84703; 85025; 96374; 99283; A4216

== ENCOUNTER 2021-03-22 08:28 | Day surgery (SDC) | payer OTHER, SELFPAY ==
[2021-03-22] VITALS (12 sets, daily range): BP systolic 119–163; BP diastolic 62–104; PULSE 60–78; RESP 16–18; TEMP 36.4–37.4; O2SAT 96–100; BMI 34.4
--- NOTE | 2021-03-22 08:32 | EKG12_ITS ---
Test Reason : PREOP Blood Pressure : / mmHG Vent. Rate : 062 BPM Atrial Rate : 062 BPM P-R Int : 140 ms QRS Dur : 080 ms QT Int : 392 ms P-R-T Axes : 043 058 041 degrees QTc Int : 397 ms Normal sinus rhythm Nonspecific T wave abnormality Abnormal ECG Confirmed by ALIN SUAREZ, JAQUELIN ([id number]), editor continuity and script MIRZA CAMPOS ([id number]) on 03/27/2021 9:40:53 AM Referred By: Guillermo Avitia Confirmed By:JAQUELIN OGDEN MD
[2021-03-22 08:48] LABS: Internal QC Validated? YES +Cl - CLEAR BKGD
[2021-03-22 08:52] LABS: Pregnancy, Urine Negative Negative
[2021-03-22] MEDS: Lactated Ringers 1,000 ML 15 ML IV (09:05)
--- NOTE | 2021-03-22 09:38 | HP.PCM.SX_ITS ---
HPI - General HPI Narrative RICHI AMADOR, is a 36 F who presents with continued attacks in the right upper quadrant radiating to the back. The patient was seen in August and had cholelithiasis. The patient elected not to proceed with surgery at that time. Patient recently had another gallbladder attack which brought her to the emergen cy room. At that time her white count was normal and they occluded that she did not have acute cholecystitis. She presents back for laparoscopic cholecystectomy. [facility] Medical History (Updated 03/20/21 @ 00:01 by Lucy Potts) Back pain GERD (gastroesophageal reflux disease) Non-smoker Obesity Wears glasses Home Medications cetirizine 10 mg capsule 10 mg PO DAILY PRN 10/24/20 [History Last Taken Unknown] multivitamin 1 tab PO DAILY 10/24/20 [History Last Taken Unknown] Allergy/AdvReac Type Severity Reaction Status Date / Time house dust Allergy Mild itchy Verified 03/22/21 09:00 eyes, sneezing mold Allergy Mild itchy Verified 03/22/21 09:00 eyes, sneezing Family History Mother Diabetes Father Crohn's disease Hypertension Hyperlipidemia Grandfather Diabetes CVA (cerebral vascular accident) Grandmother CVA (cerebral vascular accident) Surgical History H/O: section History of 2 sections History of dilation and curettage History of endometrial ablation Social History household members: spouse and children housing: house number of children: 2 pets and animals: Yes pets and animals: dog(s) Smoking Status: Never smoker alcohol intake: current alcohol intake frequency: a few times a month what type of physical activity do you participate in: walking, bicycling and weight training do you feel safe at home: Yes ROS Constitutional Constitutional: Denies anorexia or fatigue Eyes Eyes: Denies blurry vision Cardiovascular Cardiovascular: Denies chest pain Respiratory/Chest Respiratory/Chest: Denies cough or dyspnea Gastrointestinal Gastrointestinal: Reports abdominal pain Genitourinary Genitourinary: Denies change in urinary stream Integumentary Integumentary: Denies jaundice Neurologic Neurologic: Denies abnormal gait Vital Signs Vital Signs Vital Signs: 03/22/21 09:01 Temperature 98.4 F Temperature Source Temporal Pulse Rate 66 Respiratory Rate 16 Respiratory Pattern Normal Blood Pressure 119/97 H Blood Pressure Mean 104 Blood Pressure Source Monitor Blood Pressure Position Semi-Fowlers Blood Pressure Location Right Arm Pulse Ox 100 Oxygen Delivery Method Room Air Weight Weight: 207 lb 3.752 oz Body Mass Index (BMI) 34.4 Physical Exam Const alert and oriented x3 Resp normal respiratory effort and normal air movement Cardio regular rate and regular rhythm GI soft to palpation, non-tender and non-distended Results Lab / Micro Data Labs: Laboratory Results - last 24 hr 03/22/21 08:40: Urine Test Negative Assessment & Plan Assessment/Plan (1) Cholelithiasis: QUALIFIERS: Cholelithiasis location: gallbladder Cholecystitis presence: without cholecystitis Biliary obstruction: without biliary obstruction Qualified Code(s): K80.20 - Calculus of gallbladder without cholecystitis without obstruction PLAN: Patient has cholelithiasis and recently had another attack which brought her to the emergency room which is similar to her old attacks. I discussed laparoscopic cholecystectomy with her as she does have cholelithiasis which may be causing these issues. I discussed the procedure in detail with the patient. I discussed the risks, benefits, and alternatives of the procedure. I discussed the risks including but not limited to bleeding, infection, injury to surrounding organs such as the liver, bile duct, bowels. I did discuss the possibility of having to convert to an open procedure as well as the possibility that if any injuries occurred this may necessitate further surgery at a tertiary care center. Guillermo Avitia MD Pager: [facility] [address] [place] [address], [address] [place] [address] Office:
[2021-03-22] MEDS: Cefotetan 2 GM in 0.9% NS 100 ML IV (09:48)
--- NOTE | 2021-03-22 10:00 | GALL_PTH ---
PATIENT: RICHI AMADOR LOC: [facility] [place] U#:[id number] AGE/SX: 36/F ROOM: RE03/22/[address]: Dr. Guillermo Avitia MD : 1985 BED: DIS: 03/22/2021 SPEC #: [id number] RECD: 03/22/21 11:25 STATUS: SATYA SHARPE #: [id number] REMI: 03/22/21 10:[address]: Guillermo Avitia DEPT: SURGICAL PATHOLOGY RECD BY: Merlene Chaudhary ENTERED: 03/22/21 11:39 SP TYPE: TK MUSA DR: Dr. Christophe Dozier MD Tissues: Gallbladder, NOS Procedures: Surgery Specimen Level III HEADER OPERATION: Laparoscopic cholecystectomy with IOC PRE-OP DIAGNOSIS: Cholelithiasis TISSUE SUBMITTED: Gallbladder MICROSCOPIC DIAGNOSIS Gallbladder, cholecystectomy: Chronic cholecystitis and cholelithiasis. SJ:daina 03/23/2021 MICROSCOPIC DESCRIPTION Slides are reviewed. GROSS DESCRIPTION Received is one container labeled with the patient's name and designated gallbladder. The specimen consists of a gallbladder measuring 9 cm in length and up to 2 cm in diameter. The external surface is pink-carreon, smooth and glistening for the most part. Focally it is granular, hemorrhagic and contains cautery artifact. The gallbladder contains yellowish, hemorrhagic bile and one ovoid, brown stone measuring 3 x 1.5 x 1.5 cm. The mucosa is bile-stained and without any mass lesions. The gallbladder wall measures up to 0.3 cm in thickness. Rail Tractor Operator sections from the gallbladder and the cystic duct are submitted in one cassette. / SJ:rg 03/22/2021 TC:3 [facility]: [id number]
--- NOTE | 2021-03-22 10:11 | RAD_ITS ---
CLINICAL HISTORY: Female, 36 years old. Cholelithiasis. PROCEDURE: CHOLANGIOGRAM - intraoperative FLUOROSCOPY TIME (if supplied): 10 seconds TECHNIQUE: Fluoroscopy was provided the OR during performance of an intraoperative cholangiogram. 20 images were presented for interpretation. The study demonstrates absent gallbladder with cannulization of the cystic duct stump. Injection of contrast demonstrates normal-appearing intra and extrahepatic biliary ductal system without filling defect stricture or dilatation. There is free spillage of contrast into the duodenum. Please refer to the operative report for further details RAD/Cholangiogram/ O R,Initial IMPRESSION: Fluoroscopic guidance provided during intraoperative cholangiogram. Electronically Signed: Torin Wright DO at 23:57 EST ,
[2021-03-22] MEDS: Bupivacaine Mpf 0.5% 30 ML VIAL (10:48)
--- NOTE | 2021-03-22 11:00 | PCM.OPRPT ---
Problems Associated Problem List Diagnoses (1) Cholelithiasis: Report of Operation Date of Procedure: 03/22/21 Pre-Operative Diagnosis: Cholelithiasis and biliary colic Post-Operative Diagnosis: Same Surgery/Procedure Performed:: Laparoscopic cholecystectomy with cholangiogram Specimen's removed: Gallbladder Description of Procedure: After obtaining informed consent patient was brought back to the operating room. General anesthesia was induced. The abdomen was prepped and draped in usual sterile fashion. A small midline incision was made superior to the umbilicus and deepened to the level of fascia. The fascia was elevated and incised. Next the peritoneum was elevated and incised in the same fashion. Finger sweep was performed and the Syed trocar was placed into the abdomen. The balloon was inflated. The abdomen was inflated to 15 mmHg. Next a camera was introduced into the abdomen and the abdomen was inspected. Next under direct visualization three 5-mm ports were placed one subxiphoid and 2 subcostal. Next the gallbladder was elevated and retracted toward the right shoulder. The peritoneum was stripped from the gallbladder. The infundibulum was located and retracted laterally. Next the triangle of Calot was dissected and the cystic duct and cystic artery were identified. Cholangiograms were performed. The Finch clamp was used to clamp across the infundibulum and the catheter needle was inserted into the gallbladder. Under fluoroscopy contrast was instilled into the gallbladder and the common duct, cystic duct as well as proximal hepatic ducts were identified. There was good filling of the duodenum. There were no filling defects noted in the common bile duct. The clamp was removed as well as the needle and the infundibulum was grasped once more. Three hemolock clips were placed across the cystic duct. The cystic duct was then divided leaving 2 clips on the stump. The cystic artery was clipped and divided in the same fashion. The hook cautery was then used to take the gallbladder off of the gallbladder bed. Hemostasis was obtained. Gallbladder fossa was irrigated and no active bleeding or bile leakage was noted. Next the camera was introduced in the subxiphoid port. An Endopouch bag was placed through the umbilical port and the gallbladder was placed into it. The gallbladder was then removed through the umbilical incision. The camera was then reinserted through the umbilical port. The gallbladder fossa was inspected once more and noted to be hemostatic with no leaking bile. The abdomen was suctioned dry. The 5 mm ports were removed under direct visualization. The umbilical port was then removed and the air was removed from the abdomen. Next using an 0 Vicryl suture the umbilical fascia was closed in a [id number] fashion. The umbilical port site was irrigated local anesthetic was administered to all the incisions. All the incisions were closed with interrupted subcuticular 4-0 Monocryl sutures followed by Steri-Strips and dressings. The patient was awoken and taken to PACU in stable condition. Admit VTE Documentation VTE Mechan Device Prophylaxis: SCD's
--- NOTE | 2021-03-22 11:01 | EX.PCM.DISCH ---
Discharge Instructions Procedure Gallbladder Diet Discharge Diet: Light diet - advance as tolerated Activity Discharge Activity: May Not Drive (for 2-3 days or while taking narcotic pain medications.) and - (Do not drive, work heavy equipment or sign legal documents for 24 hours.) May shower in (days): 1 Lifting Restrictions: 20 lbs for 2 weeks Additional Activity Instructions:: Pain medication may cause nausea. You should typically eat light foods as you take your pain medications. Pain medication may also cause constipation. If this is a problem for you, please discuss with your doctor. Dressing / Incision Call your doctor if your incision/area has: Continuous Slow Oozing, Sudden Increased Bleeding, Increased Pain/ Swelling, Increased Redness and Foul Smelling Discharge Call your doctor if you observe: Fever of 101 or Higher Suture Line Care: Avoid Pulling/Pushing and Avoid Pinching/Bending Remove Dressing in: 2 days Additional Dressing/Incision Instructions:: Leave operative bandaids on for 2 days. When you remove dressing, leave Steri-Strips on until your follow-up appointment, or until the Steri-Strips fall off on their own. Follow Up Care Please Follow Up With: Guillermo Avitia MD When: Please call to schedule 2 week follow up appointment. [phone] Test Results: Test results from this visit will be discussed in further detail at your follow-up appointment, if applicable. Discharge Plan Admission Attending Provider: Guillermo Avitia Primary Care Provider: Christophe Dozier Discharge Orders/Prescriptions Prescriptions: New oxycodone-acetaminophen [Percocet] 5-325 mg tablet 1 tab PO Q4H PRN (Reason: pain) 5 Days Qty: 20 RF: 0 No Action multivitamin [Multiple Vitamins] Tablet 1 tab PO DAILY RF: 0 Zyrtec 10 mg capsule 10 mg PO DAILY PRN (Reason: ALLERGIES) RF: 0 Referrals / Follow Up: Christophe Dozier MD [Primary Care Provider] - Disposition Disposition (needs filled in before D/C Order can be placed): Home, Self Care
--- NOTE | 2021-03-22 18:29 | SUR.PHASEII ---
1720-dr. key called in and said this pt went home and still hasn't been able to void and would like to her to come back to to be straight cathed. he didn't want her to go to er. pt into about 1750. bladder scan done for 500cc of urine. pt straight cathed for 550cc of yellow urine. pt given instructions to rest and drink fluids and if unable to void after being home [address] key or go to ER. pt voices understanding and josias procedure well. questions answered. given sprite. escorted to car. with pt.
== END 2021-03-22 23:59 | disposition home or self-care (01) ==
LOC: SDC 08:31 → AC 08:31
PROVIDERS: Anesthesiology; PCP Family Medicine; Referring Provider Surgery; Visit Provider Surgery
PROC: (CPT 47610; principal; 2021-03-22 09:40)
DX: K80.64 Calculus of gallbladder and bile duct with chronic cholecystitis without obstruction (principal); K21.9 Gastro-esophageal reflux disease without esophagitis; E66.9 Obesity, unspecified; Z68.34 Body mass index [BMI] 34.0-34.9, adult
CPT/HCPCS: 47563; 00790; 74300; 76000; 81025; 88304; 93005; J7120; J2405

== ENCOUNTER 2021-03-27 15:25 | Outpatient (CLI) | payer OTHER, SELFPAY | END 2021-03-27 23:59 | disposition home or self-care (01) | LOC: LABSPEC 15:27 | PROVIDERS: PCP Family Medicine; Visit Provider Otolaryngology | DX: J32.9 Chronic sinusitis, unspecified (principal) | CPT/HCPCS: 87070; 87205 ==

== ENCOUNTER 2021-04-10 16:34 | Outpatient (CLI) | payer OTHER, SELFPAY ==
--- NOTE | 2021-04-10 16:39 | CT_ITS ---
EXAM: CT MAXILLOFACIAL WITHOUT INTRAVENOUS CONTRAST CLINICAL INDICATION: CHRONIC SINUSITIS TECHNIQUE: Helically acquired images were obtained of the face without intravenous contrast. This CT exam was performed using one or more of the following dose reduction techniques: automated exposure control, adjustment of the mA and/or kV according to patient size, and/or use of iterative reconstruction technique. This report was created using ulike report generation technology. COMPARISON: None. FINDINGS: BONES/JOINTS: Unremarkable. No displaced fracture. No discrete lytic or blastic abnormalities. SOFT TISSUES: Unremarkable. No focal subcutaneous swelling. No discrete fluid collections. ORBITS: Unremarkable. Both globes are unremarkable. Extraocular muscles are normal. Retrobulbar fat appears unremarkable. SINUSES: Left maxillary sinus disease. MASTOID AIR CELLS: Unremarkable as visualized. Clear. DENTAL: No acute findings. No periodontal osseous erosion. CT/Sinus/Facial Bone IMPRESSION: Left maxillary sinus disease. Electronically Signed: David Kraft MD at 17:29 EST Reading Location ID and State: [facility] / [place] , Service support ,
== END 2021-04-10 23:59 | disposition home or self-care (01) ==
LOC: CT 16:35
PROVIDERS: PCP Family Medicine; Referring Provider Otolaryngology; Visit Provider Otolaryngology
DX: J32.8 Other chronic sinusitis (principal)
CPT/HCPCS: 70486

== ENCOUNTER → 2021-08-10 | Outpatient (CLI) | payer OTHER, SELFPAY ==
[2021-08-15 17:00] LABS: HPV Reflexed? NOT INDICATED
== END | disposition home or self-care (01) ==
LOC: LABSPEC 11:59
PROVIDERS: PCP Family Medicine; Visit Provider Obstetrics & Gynecology
DX: Z12.4 Encounter for screening for malignant neoplasm of cervix (principal)
CPT/HCPCS: 88175; G0145

== ENCOUNTER → 2023-01-07 | Outpatient (CLI) | payer OTHER, SELFPAY | END | disposition home or self-care (01) | PROVIDERS: PCP Family Medicine; Referring Provider Otolaryngology; Visit Provider Otolaryngology | DX: J02.9 Acute pharyngitis, unspecified (principal) | CPT/HCPCS: 87070 ==

== ENCOUNTER 2023-03-21 21:05 | Emergency (ER) | payer OTHER, SELFPAY ==
[2023-03-21 21:08] VITALS: BP 153/113; PULSE 63; RESP 97; TEMP 36.2; BMI 30.9
--- OUTSIDE RECORDS SUMMARY | 2023-03-21 21:34 | XMS RPT_ITS | CCD ---
Author Name Unknown Address [address] [place] [address] Organization [facility] Care Team Providers Care Java [id number] Technical Lead Name Role Phone Christophe Dozier MD Primary Care Provider 1( [phone] AYESHA ROJO Referring Unavailable CHRISTOPHE DOZIER Primary Care Unavailable AYESHA ROJO Attending Unavailable CHRISTOPHE DOZIER Primary Care Unavailable Medications Completed/Discontinued Medications Medication Drug Class(es) Dates Sig (Normalized) Sig (Original) amoxicillin 875 mg / clavulanate 125 mg oral tablet (1 source) Penicillin-class Antibacterial Start: 02-07-2021 End: 05-14-2022 take 1 tablet by mouth every twelve hours amoxicillin-clavul anic acid (AUGMENTIN) 875-125 mg per tablet Take 1 tablet by mouth every 12 hours. 0 02/07/2021 05/14/2022 Discontinued (Course of therapy completed) Problems Problem Classification Problem Date Documented Da te Episodic/Chronic Malaise and fatigue (2 sources) Fatigue; Translations: [Other fatigue] Onset: 05-15-2022 Episodic Other screening for suspected conditions (not mental disorders or infectious disease) (2 sources) Patient encounter status; Translations: [Encounter for screening for lipoid disorders] Onset: 05-15-2022 Episodic Other skin disorders (1 source) Loss of hair; Translations: [Nonscarring hair loss, unspecified] Episodic Other skin disorders (1 source) Nonscarring hair loss, unspecified; Translations: [Hair loss] Onset: 05-15-2022 Episodic Results Test Name Value Interpretation Reference Range Facil ity Encounters Encounter Date Encounter Type Care Provider Facility Start: 05-15-2022 End: 05-16-2022 ambulatory AYESHA ALIA Facility:[facility] Start: 05-14-2022 End: 05-14-2022 ambulatory AYESHA ROJO Facility:[facility] Start: 05-14-2022 End: 05-14-2022 [facility] Ayesha Rojo APRN.CNP Work Phone: Family Practice Plan of Treatment Date Care Activity Detail Author Start: 05-14-2022 End: 07-14-2022 25-hydroxyvitamin D3 [Mass/volume] in Serum or Plasma VITAMIN D 25 HYDROXY Lab Routine Fatigue, unspecified type Expected: 05/14/2022, Expires: 07/14/2022 [facility] Work Phone: Immunizations Immunization Date Immunization Notes Care Provider Fa cility 12-29-2021 influenza, seasonal, injectable Ayesha Rojo APRN.CNP Work Phone: [facility] Payers Date Payer Category Payer Unknown [employer] PPO [id number] 2018-Present [phone] [address] [place] [address] PPO [id number] 2018 Unknown [id number] Social History Date Type Detail Facility Start: 05-06-2018 Tobacco smoking stat us PRIS Never smoked tobacco [facility] Work Phone: Start: 05-06-2018 Tobacco use and exposure Smoke less tobacco non-user [facility] Work Phone: Start: 05-13-2022 History SDOH Alcohol Frequency 2 [facility] Start: 05-13-2022 History SDOH Alcohol Std Drinks 1 [facility] Start: 05-13-2022 History SDOH Social Connections Phone 5 [facility] Start: 05-13-2022 History SDOH Social Connections Living 3 [facility] Start: 1985 Sex Assigned At Not on file [facility] Progress note 05-14-2022 Note Date & Type Note Facility 05-14-2022 Note HNO ID: [id number] Author: Ayesha Rojo APRN.CNP Service: ? Author Type: Nurse Practitioner Type: Progress Notes Filed: 05/14/2022 2:22 PM Note Text: VIRTUAL VISIT PROGRESS NOTE This is a virtual visit using WorldMate video visit. It required patient-provider interaction for the medical decision making as documented below. I have communicated my name and active licensure. The patient's identity and physical location were verified at the time of this visit. Either the patient or their legal small business sales representative has been informed of the risks and benefits of -- and alternatives to -- treatment through a remote evaluation and consents to proceed with the evaluation remotely. Moraima Greenfield is a 37 year old female seen to establish care. Patient's current PCP is on medical leave, last seen by them a couple years ago, plans to transfer care to the [facility] Current concerns are hair loss (including a couple bald spots and sores on scalp), fatigue. Had gallbladder removed March 2021 and noticed these symptoms starting at that time. LAST IRONER had thought she might have PCOS in the past, no specific workup for that. History of endometrial ablation for heavy menstrual bleeding, occasional menses. Has lost over 60 lbs over the last year on purpose, current weight is 163. Occasional constipation, headaches. No history of anemia, no abnormal bleeding. 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 PAST MEDICAL HISTORY Diagnosis Date Anxiety medication prior to having kids Environmental allergies dust mold, seasonal PAST SURGICAL HISTORY Procedure Laterality Date SECTION HX HYSTEROSCOPY;W/ENDOMETRIAL ABL REMOVAL GALLBLADDER ALLERGIES Patient has no known allergies. MEDICATIONS cetirizine HCl (ZYRTEC ORAL) Take by mouth. MULTIVITAMIN ORAL Take by mouth. FAMILY HISTORY Problem Relation Age of Onset other (other) Mother prediabetes Hypertension Father Hyperlipidemia Father other (other) Sister gestational diabetes Stroke Maternal Grandmother Obesity Paternal Grandfather Social History Tobacco Use Smoking status: Never Smokeless tobacco: Never REVIEW OF SYSTEMS: GENERAL: admits to fatigue HEENT: nasal congestion/drainage with seasonal allergies NECK: denies swelling or pain in neck RESPIRATORY: no cough, no wheezing or shortness of breath CARDIOVASCULAR: no chest pain, no palpitations GI: normal appetite, tolerating PO well, and no abdominal pain : urination is normal LAST IRONER: denies abnormal vaginal bleeding MUSCULOSKELETAL: denies any painful or swollen joints, no muscle aches SKIN: eczema on hands, hair loss and sores on scalp PSYCH: denies depressed or anxious mood HEMATOLOGY/LYMPHOLOGY: negative for prolonged bleeding ENDOCRINE: denies cold/heat intolerance, denies polyuria or polydipsia NEURO: no numbness or paresthesias and no weakness of the extremities PHYSICAL EXAMINATION: VIDEO EXAM: (if completed, performed via video enabled technology) GENERAL: alert and appropriate, in no distress, well-hydrated, well nourished, and happy, smiling, interactive 1. Fatigue, unspecified type Patient will get fasting labs completed this week. Advised to schedule in person appointment to establish care and for full physical exam. - COMP METABOLIC PANEL; Future - CBC; Future - TSH BLD; Future - VITAMIN D 25 HYDROXY; Future 2. Screening for lipid disorders - LIPID PANEL BASIC; Future 3. Hair loss If labs normal, recommend consult with dermatology. - TSH BLD; Future Ayesha Rojo APRN.SENAIT [facility] History of Present illness Narrative 05-14-2022 Ayesha Rojo APRN.SENAIT - 05/14/2022 1:41 PM EDT Note Date & Type Note Facility 05-14-2022 History of Presen t illness Narrative VIRTUAL VISIT PROGRESS NOTE This is a virtual visit using WorldMate video visit. It required patient-provider interaction for the medical decision making as documented below. I have communicated my name and active licensure. The patient's identity and physical location were verified at the time of this visit. Either the patient or their legal small business sales representative has been informed of the risks and benefits of -- and alternatives to -- treatment through a remote evaluation and consents to proceed with the evaluation remotely. Moraima Greenfield is a 37 year old female seen to establish care. Patient's current PCP is on medical leave, last seen by them a couple years ago, plans to transfer care to the [facility] Current concerns are hair loss (including a couple bald spots and sores on scalp), fatigue. Had gallbladder removed March 2021 and noticed these symptoms starting at that time. LAST IRONER had thought she might have PCOS in the past, no specific workup for that. History of endometrial ablation for heavy menstrual bleeding, occasional menses. Has lost over 60 lbs over the last year on purpose, current weight is 163. Occasional constipation, headaches. No history of anemia, no abnormal bleeding. 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 PAST MEDICAL HISTORY Diagnosis Date Anxiety medication prior to having kids Environmental allergies dust mold, seasonal PAST SURGICAL HISTORY Procedure Laterality Date SECTION HX HYSTEROSCOPY;W/ENDOMETRIAL ABL REMOVAL GALLBLADDER ALLERGIES Patient has no known allergies. MEDICATIONS cetirizine HCl (ZYRTEC ORAL) Take by mouth. MULTIVITAMIN ORAL Take by mouth. FAMILY HISTORY Problem Relation Age of Onset other (other) Mother prediabetes Hypertension Father Hyperlipidemia Father other (other) Sister gestational diabetes Stroke Maternal Grandmother Obesity Paternal Grandfather Social History Tobacco Use Smoking status: Never Smokeless tobacco: Never REVIEW OF SYSTEMS: GENERAL: admits to fatigue HEENT: nasal congestion/drainage with seasonal allergies NECK: denies swelling or pain in neck RESPIRATORY: no cough, no wheezing or shortness of breath CARDIOVASCULAR: no chest pain, no palpitations GI: normal appetite, tolerating PO well, and no abdominal pain : urination is normal LAST IRONER: denies abnormal vaginal bleeding MUSCULOSKELETAL: denies any painful or swollen joints, no muscle aches SKIN: eczema on hands, hair loss and sores on scalp PSYCH: denies depressed or anxious mood HEMATOLOGY/LYMPHOLOGY: negative for prolonged bleeding ENDOCRINE: denies cold/heat intolerance, denies polyuria or polydipsia NEURO: no numbness or paresthesias and no weakness of the extremities PHYSICAL EXAMINATION: VIDEO EXAM: (if completed, performed via video enabled technology) GENERAL: alert and appropriate, in no distress, well-hydrated, well nourished, and happy, smiling, interactive 1. Fatigue, unspecified type Patient will get fasting labs completed this week. Advised to schedule in person appointment to establish care and for full physical exam. - COMP METABOLIC PANEL; Future - CBC; Future - TSH BLD; Future - VITAMIN D 25 HYDROXY; Future 2. Screening for lipid disorders - LIPID PANEL BASIC; Future 3. Hair loss If labs normal, recommend consult with dermatology. - TSH BLD; Future Ayesha Rojo APRN.CNP documented in this encounter [facility] Evaluation note Note Date & Type Note Facility documented in this encounter [facility] Summary Purpose Family History No Family History Records FoundNo Family History Records Found Advance Directives No Advanced Directives Records FoundNo Advanced Directives Records Found Additional Source Comments INFORMATION SOURCE (unrecogn ized section and content) DATE CREATED AUTHOR AUTHOR'S ORGANIZ ATION 05/17/2022 [facility] Source Comments (unrecognize d section and content) In the event this informatio n is protected by the Federal Confidentiality of Alcohol and Drug Abuse Patient Records regulations: The Federal rules restrict any use of the information to criminally investigate or prosecute any alcohol or drug abuse patient.[facility] Reason for Visit (unrecogniz ed section and content) Care Teams (unrecognized sec tion and content) FOR RECORDS PERTAINING TO PATIENTS WHO ARE OR HAVE BEEN ENROLLED IN A CHEMICAL DEPENDENCY/SUBSTANCEABUSE PROGRAM, SOME INFORMATION MAY BE OMITTED. This clinical summary was aggregated from multiple sources. Caution should be exercised in using it in the provision of clinical care. This summary normalizes information from multiple sources, and as a consequence, information in this document may materially change the coding, format and clinical context of patient data. In addition, data may be omitted in some cases. CLINICAL DECISIONS SHOULD BE BASED ON THE PRIMARY CLINICAL RECORDS. [facility]. provides no warranty or guarantee of the accuracy or completeness of information in this document.
--- NOTE | 2023-03-21 21:57 | EDS_ITS ---
HPI <MAX Lane - Last Filed: 03/21/23 22:04> History of Present Illness Chief Complaint: Laceration Narrative Narrative: Patient is a 38-year-old female with no significant medical history presents to the emergency department with right middle finger laceration. Patient states she was using a mandolin when she struck the tip of her finger. This happened approximate 5 PM, she did not get this to stop bleeding so she is here for evaluation. Tetanus vaccination unknown. Full range of motion of the middle finger. PFS <MAX Lane - Last Filed: 03/21/23 22:04> [facility] Medical History Back pain GERD (gastroesophageal reflux disease) Non-smoker Obesity Wears glasses Home Medications cetirizine 10 mg capsule (Zyrtec) 10 mg PO DAILY PRN ALLERGIES 10/24/20 [History Last Taken Unknown] multivitamin (Multiple Vitamins tablet) 1 tab PO DAILY 10/24/20 [History Last Taken Unknown] doxycycline monohydrate 100 mg capsule 100 mg PO BID #20 caps 02/26/23 [Rx Last Taken Unknown] fluconazole 200 mg tablet 200 mg PO DAILY #1 TAB 02/26/23 [Rx Last Taken Unknown] Allergy/AdvReac Type Severity Reaction Status Date / Time house dust Allergy Mild itchy Verified 03/21/23 21:08 eyes, sneezing mold Allergy Mild itchy Verified 03/21/23 21:08 eyes, sneezing Family History Mother Diabetes Father Crohn's disease Hypertension Hyperlipidemia Grandfather Diabetes CVA (cerebral vascular accident) Grandmother CVA (cerebral vascular accident) Surgical History H/O: section History of 2 sections History of dilation and curettage History of endometrial ablation S/P laparoscopic cholecystectomy Social History household members: spouse and children housing: house number of children: 2 pets and animals: Yes pets and animals: dog(s) Smoking Status: Never smoker alcohol intake: current alcohol intake frequency: a few times a month what type of physical activity do you participate in: walking, bicycling and weight training do you feel safe at home: Yes ROS <MAX Lane - Last Filed: 03/21/23 22:04> ROS ED ROS Narrative Constitutional: Negative for fever, chills, weight loss, weakness Eyes: Negative for vision loss, vision change, double vision ENT: Negative for any sore throat, ear pain, congestion Cardiovascular: Negative for any chest pain, tightness, palpitations Respiratory: Negative for any cough, sputum production, hemoptysis, dyspnea, dyspnea on exertion, orthopnea Gastrointestinal: Negative for any abdominal pain, nausea, vomiting, diarrhea, constipation, blood in stool, blood in vomit : Negative for any urinary frequency, dysuria, retention, blood in urine Muscle skeletal: Negative for any myalgias, arthralgias, neck pain, back pain Neurological: Negative for any headache, syncope, paresthesias, dizziness Skin: Negative for any rashes, lumps, itching, abrasions. Positive for avulsion laceration of the distal tip of the right middle finger Psychiatric: Negative for any depression, anxiety, stress, suicidal ideation, homicidal ideation Hematologic: Negative for any easy bruising, excessive bruising, easy bleeding Allergies: Negative for any eczema, hives, rash EXAM <MAX Lane - Last Filed: 03/21/23 22:04> Physical Exam Narrative Exam Narrative: Vital signs reviewed. Extremities: Patient has an avulsion like laceration to the distal tip of the right middle finger. Patient has full range of motion, there is bleeding, this is roughly 1 cm x 1 cm in diameter, it is a pamunkey. No suturing is required. Neuro: Cranial nerves II through XII intact, no focal neurological deficits. Skin: Clean dry and intact with no rash, purpura, petechiae, vesicles or pustules. Backs/flank: No CVA tenderness, no midline spinal tenderness, no deformity. Psych: Normal mood and affect. No SI, HI or acute psychosis. Const Vital Signs: 03/21/23 21:08 03/21/23 22:26 Temperature 97.1 F L Temperature Source Temporal Pulse Rate 63 78 Respiratory Rate 97 H 18 Blood Pressure 153/113 H 162/90 H Blood Pressure Mean 126 114 Pulse Ox 98 Oxygen Delivery Method Room Air <Dr. Natanael Loza MD - Last Filed: 03/21/23 23:05> Physical Exam Const Vital Signs: 03/21/23 21:08 03/21/23 22:26 Temperature 97.1 F L Temperature Source Temporal Pulse Rate 63 78 Respiratory Rate 97 H 18 Blood Pressure 153/113 H 162/90 H Blood Pressure Mean 126 114 Pulse Ox 98 Oxygen Delivery Method Room Air [facility] <MAX Lane - Last Filed: 03/21/23 22:04> [facility] Treatment and Re-Evaluation :: Patient appears generally well, patient appears nontoxic, vital signs are stable. Presenting to the emergency department with a avulsion laceration to the right middle finger. At this time, there is no suturing that is needed, this is an avulsion, I was able to anesthetize the finger, copiously irrigate the wound. I did place surgical foam on the distal tip as well as a tube gauze. Patient tolerated well. Patient was given the remainder surgical foam. Patient will leave this on for 24 hours. She was updated on her tetanus vaccination today. She is instructed return for any worsening symptoms. At this time, patient stable for discharge, she will return for any worsening symptoms. <Dr. Natanael Loza MD - Last Filed: 03/21/23 23:05> [facility] Narrative Medical decision making narrative: I have personally performed a face to face assessment of the patient and have reviewed the NADINE Note. I performed a substantive portion of the visit including all aspects of the following. My carrillo findings include: History: Patient had an avulsion of tissue on a mandolin slicer. Exam: Full avulsion of tissue. Not able to be sutured. Neurovascular intact Medical Decision Making: Tetanus update and dressing. Discharge Plan Triage Chief Complaint: Laceration ED Midlevel Provider: Walter Camejo ED Provider: Natanael Loza Dx/Rx/DC Orders Clinical Impression: Laceration Instructions: ED Laceration, Old: Not Sutured, ED Wound Check (No Infection) Prescriptions: No Action multivitamin [Multiple Vitamins] Tablet 1 tab PO DAILY Zyrtec 10 mg capsule 10 mg PO DAILY PRN (Reason: ALLERGIES) doxycycline monohydrate 100 mg capsule 100 mg PO BID Qty: 20 0RF fluconazole 200 mg tablet 200 mg PO DAILY Qty: 1 0RF Rx Instructions: to be taken AFTER COMPLETING doxycycline if needed (use otc Monostat if symptoms develop WHILE STILL TAKING doxycycline) Primary Care Provider: Christophe Dozier Referrals: Christophe Dozier MD [Primary Care Provider] - Activity Restrictions/Additional Instructions: After you change to the initial dressing tomorrow evening, change the dressing twice daily. Keep clean and dry. You may take a shower however it needs to be covered until a proper scab is in place. This will take approximately 3 to 4 weeks to heal. Return for any signs or symptoms of infection. Disposition Disposition: Home, Self Care Discharge Date/Time: 03/21/23 22:27
[2023-03-21] MEDS: Diphth,Pertuss(Acell),Tet Vac 0.5 ML Vial IM (22:08)
[2023-03-21 22:26] VITALS: BP 162/90; PULSE 78; RESP 18; O2SAT 98
== END 2023-03-21 22:27 | disposition home or self-care (01) ==
PROVIDERS: Emergency Provider Emergency Medicine; PCP Family Medicine; Visit Provider Emergency Medicine
DX: S61.212A Laceration without foreign body of right middle finger without damage to nail, initial encounter (principal); W26.8XXA Contact with other sharp object(s), not elsewhere classified, initial encounter; Z23 Encounter for immunization
CPT/HCPCS: 90471; 90715; 99282

== ENCOUNTER → 2024-03-18 | Outpatient (CLI) | payer OTHER, SELFPAY ==
[2024-03-25 10:07] LABS: HPV APTIMA, High Risk Negative (Negative)
== END | disposition home or self-care (01) ==
PROVIDERS: PCP Family Medicine; Visit Provider Advanced Practice Midwife
DX: Z12.4 Encounter for screening for malignant neoplasm of cervix (principal)
CPT/HCPCS: 87624; 88175; G0145

== ENCOUNTER → 2024-05-22 | Outpatient (CLI) | payer OTHER, SELFPAY ==
[2024-05-22 18:50] LABS: ALB/GLOB Ratio 1.4 RATIO (0.9-2.4); AST(SGOT) 18 U/L (<=31); Alanine Aminotransfer ALT/SGPT 12 U/L (<=34); Albumin, Serum 4.4 g/dL (3.5-5.0); Alkaline Phosphatase 90 U/L (35-104); Anion Gap 13 (5-15); BUN 13 mg/dL (4-19); BUN/Creat Ratio 15.2 RATIO (10-20); Calcium,Total 9.6 mg/dL (7.6-11.0); Carbon Dioxide 22.1 mmol/L (21.0-32.0); Chloride 100 mmol/L (98-108); Cholesterol 195 mg/dL (<=200); Creatinine, Serum 0.87 mg/dL (0.70-1.20); EST Glomerular Filtration Rate 88 (>60); Ferritin 225 ng/mL (22-378); Globulin 3.2 g/dL (2.2-4.2); Glucose 98 mg/dL (70-99); High Density Lipoprotein 80 mg/dL; Low Density Lipoprotein Calc. 102 mg/dL; Potassium 4.2 mmol/L (3.3-5.1); Protein, Total 7.6 g/dL (5.9-8.4); Sodium Level 135 mmol/L (133-145); Total Bilirubin 0.37 mg/dL (0.00-1.30); Triglycerides 65 mg/dL; Very Low Density Lipoprotein 13 mg/dL (5-40); Vitamin B12 682 pg/mL (180-914); cholesterol:hdl ratio screen 2.44
[2024-05-22 19:02] LABS: Magnesium 1.9 mg/dL (1.5-2.2)
[2024-05-22 19:03] LABS: Absolute Lymphocyte Count 2.29 X10^3/uL (0.83-4.51); Absolute Neutrophil Count 4.2 X10^3/uL (2.0-7.7); Basophil# 0.05 X10^3/uL; Basophil% 0.7 % (0-1); Eosinophils% 1.4 % (0-5); Hematocrit 39.6 % (37-47); Hemoglobin 13.1 g/dL (12.0-15.0); Lymphocyte # 2.29 X10^3/ul (0.83-4.51); Lymphocyte % 31.6 % (19-41); Mean Corp Hgb Conc 33.1 g/dL (32-36); Mean Corpuscular Hgb 30.3 pg (27.0-32.0); Mean Corpuscular Volume 91.7 fL (81-99); Monocyte# 0.57 X10^3/uL; Monocyte% 7.9 % (0-10); NRBC Flagged by Analyzer 0 % (0-5); Neutrophil # 4.21 X10^3/uL (2.7-7.7); Neutrophil % 58.1 % (47-70); Platelet Count 303 K/mm3 (150-450); RBC Distribution Width CV 12.7 % (11.6-14.6); RBC Distribution Width SD 42.6 fl (35.1-43.9); Red Blood Count 4.32 M/mm3 (4.2-5.4); White Blood Count 7.2 K/mm3 (4.4-11.0)
[2024-05-22 19:19] LABS: Iron 50 ug/dL (50-170); Iron Binding Capacity,Total 272 ug/dL (250-450); Iron Binding Capacity,Unsat 222 ug/dL (228-428)
== END | disposition home or self-care (01) ==
LOC: MFPLAB 16:03
PROVIDERS: PCP Family Medicine; Referring Provider Family Medicine; Visit Provider Family Medicine
DX: D64.9 Anemia, unspecified (principal); E83.42 Hypomagnesemia; E66.9 Obesity, unspecified
CPT/HCPCS: 36415; 80053; 80061; 82607; 82728; 82746; 83540; 83550; 83735; 84443; 85025

== ENCOUNTER → 2024-06-18 | Outpatient (CLI) | payer OTHER, SELFPAY ==
--- NOTE | 2024-06-18 14:41 | ECHOD_ITS ---
Reason For Study Reason For Study: MID SYSTOLIC CLICK Procedure This was a 2D Doppler, Color Flow transthoracic echocardiogram. Exam performed in department. Left Ventricle Normal size and thickness. The LV systolic function is normal. EF is 65 %. Normal diastololic function. Right Ventricle Normal right ventricle. Atria The left and right atria are normal. Mitral Valve Normal mitral valve. No mitral valve prolapse. Tricuspid Valve Normal tricuspid valve. Unable to estimate RV systolic pressure due to inadequate jet, pulmonary artery pressure probably normal. Aortic Valve Trisinus/trileaflet aortic valve. Pulmonic Valve The pulmonic valve is not well visualized. Great Vessels Normal sized aortic root. Pericardium/Pleural No pericardial effusion. MMode/2D Measurements & Calculations LVIDd: 4.5 cm IVSd: 0.84 cm Ao root diam: 3.1 cm LVIDs: 2.7 cm LVPWd: 1.0 cm FS: 39.1 % LAV(MOD-bp): 43.2 ml LVAd ap4: 27.0 cm2 SV(MOD-sp4): 53.7 ml LAV(MOD-bp) Indexed: 23.3 ml/m2 LVLd ap4: 7.6 cm SI(MOD-sp4): 29.0 ml/m2 LAV(MOD-sp2): 37.3 ml EDV(MOD-sp4): 82.4 ml LAV(MOD-sp4): 47.3 ml EDV(sp4-el): 81.7 ml LVAs ap4: 13.8 cm2 LVLs ap4: 6.0 cm ESV(MOD-sp4): 28.8 ml ESV(sp4-el): 27.0 ml EF(MOD-sp4): 65.1 % EF(sp4-el): 67.0 % SV(sp4-el): 54.8 ml LA A4 area: 16.0 cm2 LA dimension(2D): 3.6 cm RA A4 area: 10.6 cm2 TAPSE: 2.0 cm Time Measurements MV dec time: 0.20 sec Doppler Measurements & Calculations MV E max remi: 104.2 cm/sec Lat Peak E' Remi: 18.2 cm/sec Med Peak E' Remi: 11.5 cm/sec MV A max remi: 82.6 cm/sec E/E' lat: 5.7 E/E' med: 9.1 MV E/A: 1.3 MV V2 max: 111.7 cm/sec MV P1/2t max remi: 114.7 cm/sec Ao V2 max: 140.7 cm/sec MV max P.0 mmHg MV P1/2t: 63.1 msec Ao max P.9 mmHg MV V2 mean: 62.7 cm/sec Ao V2 mean: 98.1 cm/sec MV mean P.8 mmHg MV dec slope: 532.7 cm/sec2 Ao mean P.3 mmHg MV V2 VTI: 25.3 cm MVA(P1/2t): 3.5 cm2 Ao V2 VTI: 28.1 cm AV (velocity ratio): 0.97 LV V1 max: 140.6 cm/sec PA V2 max: 94.8 cm/sec LV V1 max P.9 mmHg PA V2 mean: 67.3 cm/sec LV V1 mean P.1 mmHg LV V1 mean: 94.2 cm/sec LV V1 VTI: 27.2 cm ECHO/Echo Complete Interpretation Summary The LV systolic function is normal. EF is 65 %. Normal diastololic function. No mitral valve prolapse. Ordering Physician: Gautam Anguiano Referring Physician: Gautam Anguiano Performed By: Dominique Zazueta, KENDRA, RVT
== END | disposition home or self-care (01) ==
PROVIDERS: PCP Family Medicine; Referring Provider Family Medicine; Visit Provider Family Medicine
DX: R01.2 Other cardiac sounds (principal)
CPT/HCPCS: 93306